=== PATIENT | female | born 1950 | race Caucasian/White ===

== ENCOUNTER → 2018-09-09 08:31 | Outpatient (CLI) | payer MEDICARE, MEDICAID, SELFPAY ==
--- NOTE | 2018-09-09 | XR_ITS ---
XR hip RT 2-3V w/pelvis HISTORY: ITS.REASON: KRISTY HIP PAIN ORDERING PHYSICIAN: Mohinder Mueller MD PATIENT AGE: 68 years COMPARISON: None FINDINGS: No fracture or dislocation is evident. No significant degenerative change. No lytic or blastic change. Unremarkable soft tissues. A small cystic areas present in the femoral neck at 8 mm nonspecific IMPRESSION: No acute finding. Questionable small cystic area in the femoral neck. Consider follow-up to confirm stability
--- NOTE | 2018-09-09 | XR_ITS ---
XR hip LT 2-3V w/pelvis HISTORY: ITS.REASON: KRISTY HIP PAIN ORDERING PHYSICIAN: Mohinder Mueller MD PATIENT AGE: 68 years COMPARISON: 05/20/2012 FINDINGS: No fracture or dislocation is evident. There is a small cystic area in the neck of the femur laterally measuring approximately 8 mm. No significant degenerative change. IMPRESSION: 1. No acute finding. 2. Small cystic area in the femoral neck nonspecific. This however was not present on the previous exam and may be due to a subchondral cyst. Consider follow-up to confirm stability
--- NOTE | 2018-09-09 | XR_ITS ---
EXAM: XR lumbar spine min 4V HISTORY: ITS.REASON: BACK PAIN ORDERING PHYSICIAN: Mohinder Mueller MD PATIENT AGE: 68 years COMPARISON: None FINDINGS: Normal alignment. No fracture or dislocation. No lytic or blastic change. There is minimal loss of height anteriorly of L4 with anterior osteophytes at L3-L4 and L5. There are faint calcifications in the left upper quadrant suggesting nephrolithiasis. There are nonspecific pelvic calcifications which may be due to phleboliths. Cannot exclude ureteral calculi on the right. There are surgical clips in the right upper quadrant. IMPRESSION: 1. Mild degenerative changes in the lumbar spine. There is mild wedging of L4 which could be old. 2. Left nephrolithiasis
[2018-09-09 09:44] LABS: Basophils # 0.1 K/mm3 (0-0.2); Basophils % 0.9 % (0.1-2.0); Eosinophils # 0.1 K/mm3 (0.0-0.4); Eosinophils % 2.2 % (0.1-12.0); Hematocrit 39.9 % (37.0-47.0); Lymphocytes # 1.9 K/mm3 (0.7-4.5); Lymphocytes % 30.5 % (10-50); Mean Corpuscular HGB Conc 32.6 g/dL (31.8-35.4); Mean Corpuscular Hemoglobin 30.9 pg (27.0-31.2); Mean Corpuscular Volume 94.7 fl (81-99); Mean Platelet Volume 7.6 fl (7.4-10.4); Monocytes # 0.5 K/mm3 (0.1-1.0); Monocytes % 7.6 % (1.7-9.3); Neutrophils # 3.6 K/mm3 (1.8-7.8); Neutrophils % 58.9 % (37.0-80.0); Platelet Count 391 K/mm3 (142-424); Red Blood Count 4.21 M/mm3 (4.20-5.40); Red Cell Distribution Width 12.9 % (11.5-17.5); White Blood Count 6.1 K/mm3 (4.8-10.8)
[2018-09-09 11:44] LABS: Alanine Aminotransferase 17 U/L (12-78); Albumin Level 3.8 gm/dL (3.4-5.0); Alkaline Phosphatase 89 U/L (46-116); Anion Gap 14.5 mEq/L (5-15); Aspartate Amino Transferase 12 U/L (15-37); Bilirubin,Total 0.4 mg/dL (0.2-1.0); Blood Urea Nitrogen 17 mg/dL (7-18); Calcium 9.7 mg/dL (8.5-10.1); Carbon Dioxide 28 mmol/L (21.0-32.0); Chloride 105 mmol/L (98-107); Chol/HDL Ratio 5.3 (1-3.5); Cholesterol 234 mg/dL (140-200); Creatinine,Serum 0.85 mg/dL (0.55-1.02); Estimated Glomerular Filt Rate 67 ml/min (>60); GFR (African American) 81 ML/MIN (>60); Globulin 3.8 gm/dl (1.3-3.2); Glucose 99 mg/dL (74-106); HDL Cholesterol 44 mg/dL (29-89); LDL Cholesterol 172 mg/dL (0-130); Potassium 5.5 mmoL/L (3.5-5.1); Sodium 142 mmol/L (136-145); Total Protein,Serum 7.6 gm/dL (6.4-8.2); Triglycerides 88 mg/dL (30-200); VLDL Cholesterol 18 mg/dL (0-40)
[2018-09-09 12:44] LABS: Hemoglobin A1C 5.8 % (0.0-7.0)
== END ==
PROVIDERS: Visit Provider Family Medicine
DX: M54.5 Low back pain (principal); M25.552 Pain in left hip; M25.551 Pain in right hip; Z00.00 Encounter for general adult medical examination without abnormal findings; Z79.899 Other long term (current) drug therapy
CPT/HCPCS: 36415; 72110; 73502; 80053; 80061; 83036; 85025

== ENCOUNTER → 2018-09-20 09:24 | Outpatient (CLI) | payer MEDICARE, SELFPAY ==
--- NOTE | 2018-09-20 09:30 | XR_ITS ---
XR DEXA axial skeleton HISTORY: ITS.REASON: POSTMENOPAUSAL ORDERING PHYSICIAN: Mohinder Mueller MD PATIENT AGE: 68 years COMPARISON: None FINDINGS: The BMD measured at the Left femoral neck is 0.687 g/cm squared with a T score of -2.5. This is considered Osteoporotic according to the World Health Organization criteria. Fracture risk is High. Treatment is advised. IMPRESSION: Osteoporosis with high fracture risk. Treatment is advised. Suggest follow-up exam September 2019
== END ==
PROVIDERS: PCP Family Medicine; Visit Provider Family Medicine
DX: Z78.0 Asymptomatic menopausal state (principal); M48.50XA Collapsed vertebra, not elsewhere classified, site unspecified, initial encounter for fracture
CPT/HCPCS: 77080

== ENCOUNTER 2018-09-30 10:00 | Outpatient (RCR) | payer MEDICARE, MEDICAID, SELFPAY ==
--- NOTE | 2018-09-20 10:59 | HMH.PTOPEV ---
PT Outpatient Evaluation Rehab PT Outpatient Evaluation Start: 09/20/18 10:46 Freq: Status: Active Protocol: Document 09/20/18 10:47 HARLEY (Rec: 09/20/18 10:59 HARLEY [id number]) Electronically Signed By Cy Breaux, PT 09/20/18 10:47 Outpatient Therapy Subjective History Subjective History Patient is a 68 year old female presenting to outpatient PT with reports of chronic LBP and bilateral hip pain of insidious onset starting approximately 10 years ago. Most recent diagnostics indicate lumbar spine DDD. Pt reports increased pain with sitting, walking and laying down. She reports intermittent numbness/ tingling/pain to bilateral hips and lateral thighs. Relief with standing/activity. Comorbidites include OA, hx of uterine cancer and hysterectomy. Chief Complaint Pain Stiff Paresthesia Symptom Type Ache Burning Numbness Tingling Symptoms Relieved By Heat Activity Symptoms Aggravated By Supine Sitting Walking Prior Functional Limitations None Current Functional Limitations Lifting Housework Sleeping Sitting Walking Symptom Description Intermittent Level of pain today (0-10) 0 Pain scale - at its best (0-10) 0 Pain scale - at its worst (0-10) 8 Lumbopelvic Eval Posture Thoracic Spine Posture Standing Position Increased Kyphosis Lumbar Spine Posture Standing Position Decreased Lordosis Palapation tenderness bilateral buttock tenderness Yes: 2/4 gluteal mm, piriformis Range of Motion Lumbar Spine Active Flexion Range of WNL Motion (degrees) Lumbar Spine Active Extension Range of 10 inc radicular sym Motion (degrees) Left Lumbar Spine Lateral Flexion Active 12 Range of Motion (degrees) Right Lumbar Spine Lateral Flexion 18 Active Range of Motion (degrees) Lumbar Spine ROM Limitations Soft Tissue Tightness
== END 2018-09-30 10:05 | disposition home or self-care (01) ==
LOC: PT 10:00
PROVIDERS: Visit Provider Family Medicine
DX: M54.5 Low back pain (principal)
CPT/HCPCS: 97010; 97012; 97014; 97110; 97163; G0283

== ENCOUNTER → 2018-10-18 15:00 | Outpatient (CLI) | payer MEDICARE, MEDICAID, SELFPAY ==
--- NOTE | 2018-10-18 15:03 | MR_ITS ---
MR lumbar spine wo con, MR 3-d myelogram/MRCP HISTORY: LBP with Bilateral hip and leg pain. LT leg numbness. XYRS. No lumbar surgery. ITS.REASON: MECHANICAL LOW BACK PAIN, VERTEBRAL COMPRESSION ORDERING PHYSICIAN: Mohinder Mueller MD PATIENT AGE: 68 years Comparison: X-RAY 09-09-18. TECHNIQUE: Standard multiplanar multiecho sequences are performed without contrast. 3-D MIP and myelographic images are also rendered and reviewed FINDINGS: There is normal alignment. The spinal cord in that the T12 level. Mild disc desiccation is present at T12-L1 with a small Schmorl's node along the superior endplate of L1. L1-L2 and L2-L3 have an unremarkable appearance. L3-L4: Minimal bulging disc with minimal osteophytes anteriorly. There is some slight decrease in height of the vertebral body of L4 however, this does not appear acute. L4-L5: Minimal bulging disc. There is facet and ligamentum flavum hypertrophy at this level with moderate bilateral lateral recess and foraminal narrowing. L5-S1: Degenerative disc disease with bulging disc and a small left paracentral disc protrusion. A small broad-based disc osteophyte complex is present in the right paracentral, lateral, and foraminal region causing moderate to severe right foraminal narrowing and right lateral recess narrowing. There is an exophytic cyst along the lateral aspect of the left kidney at 2.7 cm with some decreased T2 signal posteriorly which could be related to prior hemorrhage. IMPRESSION: 1. Mild multilevel lumbar spondylosis with degenerative disc disease and bulging disc along with facet and ligamentum flavum hypertrophy. Please see above for detailed description at each level 2. L3-L4: Minimal bulging disc with minimal osteophytes anteriorly. There is some slight decrease in height of the vertebral body of L4 however, this does not appear acute. 3. L4-L5: Minimal bulging disc. There is facet and ligamentum flavum hypertrophy at this level with moderate bilateral lateral recess and foraminal narrowing. 4. L5-S1: Degenerative disc disease with bulging disc and a small left paracentral disc protrusion. A small broad-based disc osteophyte complex is present in the right paracentral, lateral, and foraminal region causing moderate to severe right foraminal narrowing and right lateral recess narrowing. 5. Small complex cyst of the left kidney with some suspected underlying hemorrhage. Ultrasound may confirm cystic nature
== END ==
PROVIDERS: PCP Family Medicine; Visit Provider Family Medicine
DX: M54.5 Low back pain (principal); M48.50XA Collapsed vertebra, not elsewhere classified, site unspecified, initial encounter for fracture
CPT/HCPCS: 72148; 76376

== ENCOUNTER → 2019-06-20 10:29 | Outpatient (POV) | payer MEDICARE, OTHER, SELFPAY ==
[2019-06-20 10:44] VITALS: BP 154/91; PULSE 75; RESP 18; O2SAT 98; BMI 27.6
--- NOTE | 2019-06-20 13:02 | HMH.PMCON ---
Assessment and Plan (1) Degenerative disc disease Current visit: Yes Status: Chronic Qualifiers: Spinal region: lumbar Qualified Code(s): M51.36 - Other intervertebral disc degeneration, lumbar region Category: Medical (2) Radiculopathy Current visit: Yes Status: Chronic Qualifiers: Spinal region: lumbar Qualified Code(s): M54.16 - Radiculopathy, lumbar region Category: Medical Code(s): M54.10 - Radiculopathy, site unspecified - Assessment and plan all Dx Assessment and Plan for all problems:: At this time the patient is uninterested in any injective therapy. I did give her information in regards to things that we can offer her. Patient like to continue her medication with her primary care physician. I discussed with her that we do not write oral opioid medications. Patient understands this. If the patient would like to move forward with injective therapy in the future we would be more than happy to reschedule her. Dr. Hodge has reviewed this note and agrees with this plan of care. This note was dictated using voice recognition software and may contain errors or omissions HPI - Data of Consult Consult date: 06/20/19 Requesting Physician: Marleen Dennis APRN Primary Care Provider: Mohinder Mueller MD - Consult Narrative Reason for consult: Back pain History of present illness: Ms. Mills is a 69 year old female who presents today for consultation in regards to her low back pain. She rates her pain a 5 out of 10. Patient has had back pain for years. Patient states she went to physical therapy one time however she did not like it so she quit. Patient does have an MRI showing abnormalities including degenerative disc disease. Patient is uninterested in any kind of injective therapy. Patient states that she is getting pain medication from her primary care physician and it has been working well for her. CC: Marleen Dennis APRN [facility] History I have reviewed the patient's past medical history: Yes *Have you ever received a pneumonia vaccine?: Yes *Have you received a flu vaccine this season?: Yes Other Medical History: Reports: Arthritis Other Surgeries: Yes: Cholecystectomy Amputation: No Fractures: No - *Social History Smoking Status: Current every day smoker Tobacco Type: cigarettes # Packs/Day (cigarettes): 2 Alcohol Intake: never *Occupational Status:: other Housing: house *Travel in the last 8 weeks: None Family Hx:: Unable to obtain Review of Systems - Review of Systems ROS General: no recent weight change, no fever, no sleep disturbances Respiratory: no cough, no shortness of air, no recurring pulmonary infections Cardiovascular/Peripheral Vascular: No chest pain, No palpitations, no edema, no shortness of breath. Gastrointestinal: no new onset incontinence, normal bowel movements reported Genitourinary: no new onset incontinence Musculoskeletal: Back pain, leg pain Psychiatric: normal mood/ affect Neurological: [denies new onset weakness in extremities], [denies new onset balance issues] Objective Vital signs: Pulse Resp BP Pulse Ox 75 18 154/91 H 98 06/20/19 10:44 06/20/19 10:44 06/20/19 10:44 06/20/19 10:44 Narrative: Physical Exam General: Alert and oriented x3, no acute distress, pleasant and cooperative, [on room air] Lungs: Resps E/U, Symmetrical chest expansion, Eyes: PERRL Musculoskeletal: Flexion and extension of lumbar spine somewhat guarded secondary to pain, deep tendon reflexes normal, strength in upper and lower extremities [5/5], [abnormal gait noted] Neurological: speech clear, pharmacy tech customer service equal, no gross sensory deficits Opioid Risk Tool - Opioid Risk Tool-Female Family hx alcohol abuse: N Family hx illegal drugs: N Family hx rx drug abuse: N Personal hx alcohol abuse: N Personal hx illegal drugs: N Personal hx rx drug abuse: N Age: 45+ Hx of sexual abuse: N Mental health issu
== END ==
PROVIDERS: PCP Family Medicine; Visit Provider Clinical Nurse Specialist Family Health
DX: M51.16 Intervertebral disc disorders with radiculopathy, lumbar region (principal)
CPT/HCPCS: 99212

== ENCOUNTER 2020-01-08 14:52 | Emergency (ER) | payer MEDICARE, OTHER, SELFPAY ==
--- NOTE | 2020-01-08 14:59 | ECG_ITS ---
APPROVED REPORT Exam: Resting ECG HR:72 bpm ECG Measurements Heart Rate 72 AXES PA 144 P 39 QRSd 68 QRS 44 QT 386 T 58 QTc 422 <Conclusion> Normal sinus rhythm Normal ECG Electronically signed by : Sj Hanley, 01/09/2020 13:51:01
[2020-01-08 15:02] VITALS: BP 177/102; PULSE 79; RESP 18; TEMP 36.9; O2SAT 98; BMI 28.7
--- NOTE | 2020-01-08 15:02 | HMH.EDGENADL ---
ED Disposition Clinical Impression: Dyspnea on exertion Disposition: Home, Self-Care Condition on Discharge: Good Instructions: DI for Shortness of Breath, DI for High Blood Pressure Referrals: Mickey Viera MD [Primary Care Provider] - 3 days - Critical Care Critical Care Time: No Attestation: On 01/08/20, the high probability of a clinically significant, sudden or life threatening deterioration of the following system(s) required my full and direct attention, intervention and personal management. The time I documented below is in addition to time spent performing reported procedures but includes the following listed in this critical care notation. Medical Decision Making - Medical Records Medical records reviewed: Yes: I reviewed the patient's medical records. - Lazaro Inquiry Pt receiving controlled substance: No Vital Signs: 01/08/20 15:02 01/08/20 15:30 Temperature 98.5 F Temperature Source Oral Pulse Rate [Right Radial] 79 69 Respiratory Rate 18 Blood Pressure [Right Arm] 177/102 H 139/84 Blood Pressure Mean [Right Arm] 127 102 Blood Pressure Source [Right Arm] Automatic Cuff Automatic Cuff Blood Pressure Position [Right Arm] Sitting Supine 02 Sat by Pulse Oximetry 98 97 Oxygen Delivery Method Room Air Room Air - Lab Data Lab results reviewed: Yes: I reviewed the patient's lab results. Lab Results 01/08/20 15:09: WBC 9.4, RBC 4.16 L, Hgb 13.5, Hct 39.4, MCV 94.8, MCH 32.5 H, MCHC 34.3, RDW 13.1, Plt Count 349, MPV 7.6, Neut % (Auto) 61.4, Lymph % (Auto) 30.7, Bailey % (Auto) 6.0, Eos % (Auto) 1.2, Baso % (Auto) 0.6, Neut # (Auto) 5.8, Lymph # (Auto) 2.9, Bailey # (Auto) 0.6, Eos # (Auto) 0.1, Baso # (Auto) 0.1 01/08/20 15:09: Sodium 138, Potassium 3.9, Chloride 103, Carbon Dioxide 26, Anion Gap 12.9, BUN 10, Creatinine 0.70, Estimated Creat Clear 61, Estimated GFR 83, Est GFR ( Amer) 101, Glucose 100, Calcium 9.5, Total Bilirubin 0.6, Direct Bilirubin 0.1, Conjugated Bilirubin 0.0, Indirect Bilirubin 0.5, Unconjugated Bilirubin 0.6, AST 21, ALT 12, Alkaline Phosphatase 72, Troponin I < 0.01, Total Protein 7.9, Albumin 4.4 Result diagrams: 01/08/20 15:09 01/08/20 15:09 Orders (Tests/Meds): ED MEDICATIONS Discontinued Medications Generic Name Dose Route Start Last Admin Trade Name Freq PRN Reason Stop Dose Admin Hydralazine HCl 10 mg 01/08/20 15:17 01/08/20 15:38 Apresoline 20mg/Ml 1ml Vial IV 01/08/20 15:18 10 mg ONCE ONE Administration ORDERS Category Date Time Status Troponin I Q3H Lab 01/08/20 18:15 Ordered Troponin I Q3H Lab 01/08/20 21:15 Ordered - Radiology Data #1 Image(s): Chest Image Reviewed: Yes I reviewed the patient's radiology image Preliminary Findings: Normal/NAD - ECG Data Tracing #1 EKG at 1459 shows normal sinus rhythm with a rate of 72. No acute ST segment elevation or depression. No hyperacute T waves. Normal intervals. EKG interpreted by me. Medical Decision Narrative: EKG with no signs of acute ischemia. Chest x-ray with no pneumonia, pneumothorax, widened mediastinum or florid pulmonary edema. She is slightly hypertensive and may benefit from blood pressure medication. Troponin is negative, unlikely ACS, will certainly she would benefit from cardiology follow-up for further outpatient testing and evaluation. This may also be related to as of yet undiagnosed COPD. No chest pain, hypoxia, unlikely acute pulmonary embolus. There is no clinically significant anemia or metabolic derangement. Recommended follow-up with primary care doctor in 2 to 3 days for reevaluation. General Adult HPI - General Stated complaint: sob Time Seen by Provider: 01/08/20 15:02 Mode of Arrival: Ambulatory Source of Information: Patient, Medical Record Limitations: No Limitations - History of Present Illness HPI narrative: This is a 69-year-old female with a past medical history significant for hyperlipidemia and chronic
--- NOTE | 2020-01-08 15:14 | XR_ITS ---
PROCEDURE: XR CHEST 2V CLINICAL HISTORY: SOA COMPARISON: No exams were available for comparison FINDINGS: The cardiomediastinal silhouette and pulmonary vascularity are within normal limits. The lungs are clear without infiltrates, suspicious nodules, or pleural effusions. No acute bony abnormalities. IMPRESSION: No acute findings. Dictated by: Terry Rosario MD 01/08/2020 15:36 Electronically signed by Terry Rosario MD in [place] 01/08/2020 15:36
[2020-01-08 15:23] LABS: Basophils # 0.1 K/mm3 (0-0.2); Basophils % 0.6 % (0.1-2.0); Eosinophils # 0.1 K/mm3 (0.0-0.4); Eosinophils % 1.2 % (0.1-12.0); Hematocrit 39.4 % (37.0-47.0); Hemoglobin 13.5 g/dL (12.2-16.2); Lymphocytes # 2.9 K/mm3 (0.7-4.5); Lymphocytes % 30.7 % (10-50); Mean Corpuscular HGB Conc 34.3 g/dL (31.8-35.4); Mean Corpuscular Hemoglobin 32.5 pg (27.0-31.2); Mean Corpuscular Volume 94.8 fl (81-99); Mean Platelet Volume 7.6 fl (7.4-10.4); Monocytes # 0.6 K/mm3 (0.1-1.0); Neutrophils # 5.8 K/mm3 (1.8-7.8); Neutrophils % 61.4 % (37.0-80.0); Platelet Count 349 K/mm3 (142-424); Red Blood Count 4.16 M/mm3 (4.20-5.40); Red Cell Distribution Width 13.1 % (11.5-17.5); White Blood Count 9.4 K/mm3 (4.8-10.8)
[2020-01-08 15:26] LABS: Chloride 103 mmol/L (98-107); Potassium 3.9 mmoL/L (3.5-5.1); Sodium 138 mmol/L (136-145)
[2020-01-08 15:28] LABS: Blood Urea Nitrogen 10 mg/dl (7-17); Creatinine Clearance Estimated 61 mL/min (50-200); Estimated Glomerular Filt Rate 83 ml/min (>60); GFR (African American) 101 ML/MIN (>60)
[2020-01-08 15:29] LABS: Alanine Aminotransferase 12 U/L (12-78); Albumin Level 4.4 g/dl (3.5-5.0); Alkaline Phosphatase 72 U/L (38-126); Anion Gap 12.9 mEq/L (5-15); Aspartate Amino Transferase 21 U/L (14-36); Bilirubin,Direct 0.1 mg/dl (0.0-0.4); Bilirubin,Indirect 0.5 mg/dL (0.0-0.9); Bilirubin,Total 0.6 mg/dl (0.2-1.3); Bilirubin,Unconjugated 0.6 mg/dL (0.0-1.1); Calcium 9.5 mg/dl (8.4-10.2); Carbon Dioxide 26 mmol/L (22.0-30.0); Glucose 100 mg/dl (74-100); Total Protein,Serum 7.9 g/dl (6.3-8.2)
[2020-01-08 15:30] VITALS: BP 139/84; PULSE 69; O2SAT 97
[2020-01-08 15:45] LABS: Troponin I < 0.01 ng/ml (0.00-0.034)
[2020-01-08 16:50] VITALS: BP 139/84; PULSE 69; RESP 18; TEMP 36.9; O2SAT 97
== END 2020-01-08 16:51 | disposition home or self-care (01) ==
PROVIDERS: Emergency Provider Emergency Medicine; PCP Family Medicine
DX: R06.09 Other forms of dyspnea (principal); E78.5 Hyperlipidemia, unspecified; M54.9 Dorsalgia, unspecified; Z88.0 Allergy status to penicillin; Z90.49 Acquired absence of other specified parts of digestive tract
CPT/HCPCS: 71046; 80048; 80076; 84484; 85025; 93005; 96374; 99283

== ENCOUNTER → 2020-02-15 11:28 | Outpatient (CLI) | payer MEDICARE, OTHER, SELFPAY | PROVIDERS: PCP Family Medicine; Visit Provider Family Medicine | DX: R06.02 Shortness of breath (principal) | CPT/HCPCS: 94060 ==

== ENCOUNTER → 2020-03-21 08:09 | Outpatient (CLI) | payer MEDICARE, OTHER, SELFPAY ==
--- NOTE | 2020-03-21 08:13 | CT_ITS ---
PROCEDURE: CT LUNG SCREENING CLINICAL INDICATION: H/O NICOTINE DEPENDENCE current smoker 50 pack year smoking history copd no prior COMPARISON: No exams were available for comparison TECHNIQUE: The exam was performed on a GE Light Speed [address] scanner using 2.90 mGy CTDI. A low dose helical CT CHEST was performed on a multi-detector scanner. All CT scans at the facility use one or more dose reduction, viz: automated exposure control, ma/kV adjustment per patient size (including targeted exams where dose is matched to indication, i.e. head), or iterative reconstruction technique. The LDCT was performed in a facility that meets the criteria for the screening program. Data regarding this exam was submitted to ACR which is an approved registry. The order for this exam indicates that it came as a result of a lung cancer screening counseling shard decision-making visit that included all the elements required of such a visit including smoking cessation. The radiologist interpreting this exam meets the CMS criteria for the LDCT lung cancer screening program. The exam is reported using the Lung-RADS classification scale and reported to the ACR registry. NOTE: This study was performed for the specific purposes of lung cancer screening and is not an alternative to diagnostic chest CT. RADIATION DOSE: CTDI vol(CT dose Index-volume) = 2.90mG DLP (Dose Length Product) = 108.38 mGcm FINDINGS: COPD with scattered areas of scarring/atelectatic change with mild bronchial thickening. No suspicious nodules OTHER FINDINGS: Coronary artery calcification consistent with coronary artery disease Gastric diverticulum Mild dilatation of the infrarenal abdominal aorta at 2.6 cm in with consistent with aortic aneurysm incompletely imaged. IMPRESSION: Lung-RADS Category 1 Negative Follow-up: Continue annual screening with LDCT in 12 months Also noted is coronary artery disease. 2.6 cm infrarenal abdominal aortic aneurysm incompletely image. CT abdomen CT suggested for further evaluation Dictated by: Terry Rosario MD 03/24/2020 14:56 Terry Rosario MD in [place] 03/24/2020 14:56
== END ==
PROVIDERS: PCP Family Medicine; Visit Provider Family Medicine
DX: Z87.891 Personal history of nicotine dependence (principal); Z12.2 Encounter for screening for malignant neoplasm of respiratory organs

== ENCOUNTER → 2020-03-28 08:13 | Outpatient (CLI) | payer MEDICARE, OTHER, SELFPAY ==
--- NOTE | 2020-03-28 08:16 | US_ITS ---
PROCEDURE: US ABD. AORTA SCREENING CLINICAL INDICATION: AAA COMPARISON: No exams were available for comparison FINDINGS: The mid abdominal aorta measures up to 2.4 cm. Common iliacs proximally are unremarkable. IMPRESSION: Mild dilatation of the mid abdominal aorta at 2.4 cm Dictated by: Terry Rosario MD 03/28/2020 15:47 Terry Rosario MD in [facility] 03/28/2020 15:47
== END ==
PROVIDERS: PCP Family Medicine; Visit Provider Family Medicine
DX: I71.4 Abdominal aortic aneurysm, without rupture (principal)
CPT/HCPCS: 76705

== ENCOUNTER → 2021-04-28 07:51 | Outpatient (CLI) | payer MEDICARE, OTHER, SELFPAY ==
--- NOTE | 2021-04-28 07:54 | US_ITS ---
PROCEDURE: US AORTA CLINICAL INDICATION: AAA COMPARISON: US US ABD. AORTA SCREENING from 03/28/2020 FINDINGS: There is mild dilatation the mid aspect of the abdominal aorta at 2.7 cm. The previously the maximum AP dimension was 2.5 cm. Proximal common iliacs are unremarkable. IMPRESSION: Minimal dilatation mid abdominal aorta at 2.7 cm previously approximately 2.5. Dictated by: Terry Rosario MD 04/28/2021 12:30 Terry Rosario MD in [facility] 04/28/2021 12:30
== END ==
PROVIDERS: PCP Family Medicine; Visit Provider Family Medicine
DX: I71.4 Abdominal aortic aneurysm, without rupture (principal)
CPT/HCPCS: 76770

== ENCOUNTER → 2021-07-14 14:42 | Outpatient (CLI) | payer MEDICARE, OTHER, MEDICAID, SELFPAY | PROVIDERS: Visit Provider Nurse Practitioner | DX: U07.1 COVID-19 (principal) | CPT/HCPCS: C9803; U0003; U0005 ==

== ENCOUNTER 2022-02-14 13:49 | Emergency (ER) | payer MEDICARE, OTHER, MEDICAID, SELFPAY ==
[2022-02-14 13:51] VITALS: BP 167/92; PULSE 86; RESP 19; TEMP 36.8; O2SAT 97; BMI 30.2
[2022-02-14 14:15] VITALS: BP 167/92; PULSE 86; RESP 19; TEMP 36.8; O2SAT 97; BMI 30.3
--- NOTE | 2022-02-14 14:59 | XR_ITS ---
PROCEDURE INFORMATION: Exam: XR Chest Exam date and time: 02/14/2022 3:01 PM Age: 72 years old Clinical indication: Shortness of breath; Additional info: SOB TECHNIQUE: Imaging protocol: Radiologic exam of the chest. Views: 2 views. COMPARISON: CR XR CHEST 2V 01/08/2020 3:14 PM FINDINGS: Lungs: Slightly increased interstitial prominence in the lower lungs on today's frontal view, probably due to shallower inspiratory effort today. No focal consolidation. No definite acute findings. Pleural spaces: Unremarkable. No pleural effusion. No pneumothorax. Heart/Mediastinum: Borderline cardiomegaly, cardiac silhouette appears increased in prominence compared with the prior chest x-ray on the frontal view, but the lungs are not as well inflated on today's exam. Vasculature: Calcified plaques in the aorta. Bones/joints: There are spinal degenerative changes, with multilevel disc narrrowing and spondylosis. Mild chronic anterior wedge deformities in the midthoracic spine with mild kyphosis. No acute appearing fracture or high-grade listhesis, as visualized. IMPRESSION: 1. No acute findings. No consolidation. 2. Multiple additional non emergency and chronic findings, as above.
[2022-02-14 15:15] VITALS: BP 167/92; PULSE 86; RESP 19; TEMP 36.8; O2SAT 97
--- NOTE | 2022-02-14 15:31 | EXP.UTC ---
Discharge Plan Disposition Patient Disposition: Home, Self-Care Condition: Good Prescriptions Prescriptions: New cyclobenzaprine 5 mg tablet 5 mg PO TID PRN (Reason: muscle spasm) Qty: 30 0RF Referrals Follow up/Referrals: Mickey Viera MD [Primary Care Provider] - See instructions Activity Restrictions/Add. Instructions Additional Instructions/Restrictions: Take medication as prescribed. Follow up with PCP. Avoid heavy lifting and straining. Clinical Impressions Clinical Impression: Muscle strain Discharge ED Provider: Barbara Buckner [facility] General Stated complaint: sob, back pain Mode of Arrival: Ambulatory Source of Information: Patient Limitations: No Limitations Time Seen by Provider: 02/14/22 15:00 Description of Symptoms (Recalled from Triage Doc. by RN): PATIENT C/O PAIN TO SHOULDER BLADES THAT IS WORSE WITH MOVEMENT AND TAKING A DEEP BREATH HEENT Symptoms (Recalled from RN notes): No Resp Symptoms (Recalled from RN notes): No Skin Symptoms (Recalled from RN notes): No MS Symptoms (Recalled from RN notes): Yes Functional Status (Recalled from RN notes): WNL History of Present Illness Provider Complaint: Pt relates that she has been SOA with pain on her right mid thoracic that goes around like a U to the front across the right side of her chest. She states that the area is painful with inspiration. Pt denies taking anything for her symptoms. She states that symptoms started 2 days ago. Related Data Previous Rx's Medication Instructions Recorded cyclobenzaprine 5 mg tablet 5 mg PO TID PRN muscle spasm #30 02/14/22 tabs Allergies Allergy/AdvReac Type Severity Reaction Status Date / Time Penicillins Allergy Verified 01/08/20 15:12 Worker's Comp Is this a Worker's Comp case?: No [facility] Medical History (Updated 02/14/22 @ 15:50 by Barbara Buckner APRN) COPD (chronic obstructive pulmonary disease) Migraine Surgical History (Updated 02/14/22 @ 14:32 by Marie Trent RN) History of cholecystectomy History of hysterectomy Social History (Updated 02/14/22 @ 14:32 by Marie Trent RN) Smoking Status: Current every day smoker tobacco type: cigarettes packs per day: 1 alcohol intake: never current occupational status: other Travel in the last 8 weeks: None housing: house ROS Obtained: Yes All systems reviewed & no additional complaints except as documented and Yes Systems reviewed as appropriate & no additional complaints except as documented Constitutional Constitutional: Reports system reviewed and no additional complaints, except as documented and Reports difficulty sleeping ENT Ears, Nose, Mouth, and Throat: Reports system reviewed and no additional complaints, except as documented Cardiovascular Cardiovascular: Reports system reviewed and no additional complaints, except as documented Respiratory Respiratory: Reports as per HPI, Reports shortness of breath, Reports non-productive cough, Reports pain on inspiration, Reports pain with cough and Reports pain with breathing Gastrointestinal Gastrointestingal: Reports system reviewed and no additional complaints, except as documented Musculoskeletal Musculoskeletal: Reports as per HPI and Reports back pain Physical Exam General General appearance: alert and in no apparent distress Neck Neck exam: Present normal inspection Chest Chest inspection: Present normal inspection and symmetric chest wall rise Respiratory Respiratory exam: Present normal lung sounds bilaterally and other; Absent respiratory distress or accessory muscle use Cardiovascular Cardiovascular exam: Present regular rate and normal rhythm Abdominal Exam Abdominal exam: Present soft Extremities Exam Extremities exam: Present normal inspection Back Exam Back exam: Present tenderness Back 1 view image: 1. relates that this area hurts with breathing Neurological Exam Neurological exam: Present alert and oriented X3 Psychiatr
== END 2022-02-14 16:02 | disposition home or self-care (01) ==
PROVIDERS: Emergency Provider Nurse Practitioner Family; PCP Family Medicine
DX: S29.011A Strain of muscle and tendon of front wall of thorax, initial encounter (principal)
CPT/HCPCS: 71046; 99212; G0463

== ENCOUNTER → 2022-02-18 11:50 | Outpatient (CLI) | payer MEDICARE, OTHER, MEDICAID, SELFPAY ==
--- NOTE | 2022-02-18 12:15 | ECG_ITS ---
APPROVED REPORT Exam: Resting ECG HR:78 bpm ECG Measurements Heart Rate 78 AXES MS 150 P 67 QRSd 79 QRS 78 QT 368 T 72 QTc 402 Conclusion SINUS RHYTHM WITH OCCASIONAL SUPRAVENTRICULAR PREMATURE COMPLEXES BORDERLINE ECG UNCONFIRMED REPORT Electronically signed by : Julián Mann MD 02/18/2022 17:32:15
[2022-02-18 12:51] LABS: Blood Urea Nitrogen 11 mg/dl (7-17); Estimated Glomerular Filt Rate 83 ml/min (>60); GFR (African American) 100 ML/MIN (>60)
== END ==
PROVIDERS: PCP Family Medicine; Visit Provider Nurse Practitioner Family
DX: R07.9 Chest pain, unspecified (principal)
CPT/HCPCS: 36415; 82565; 84520; 93005

== ENCOUNTER → 2022-02-19 13:55 | Outpatient (CLI) | payer MEDICARE, OTHER, MEDICAID, SELFPAY ==
--- NOTE | 2022-02-19 14:01 | CT_ITS ---
FINAL REPORT TECHNIQUE: Postcontrast axial images of the chest were performed in a CTA protocol. This study was performed with techniques to keep radiation doses as low as reasonably achievable, (ALARA). Individualized dose reduction technique using automated exposure control or adjustment of mA and/or kV according to the patient's size were employed. CLINICAL HISTORY: RT CHEST AND BACK PAIN FINDINGS: The heart is normal in size. No adenopathy is identified. No pleural or pericardial effusion is identified. The thoracic aorta is normal in caliber with no focal aneurysm or dissection identified. There is no filling defect to suggest pulmonary embolism. There is mild emphysema and mild scarring. No lung infiltrate or mass is identified. The images of the upper abdomen demonstrate low-attenuation bilateral adrenal nodules consistent with adenomas as well as a gastric diverticulum. IMPRESSION: No evidence for PE, aneurysm or dissection. No acute process. Reviewed, Interpreted and Dictated by Thuan Pires III, MD Transcribed by Ayala Gutierrez Authenticated and . [facility]
== END ==
PROVIDERS: PCP Family Medicine; Visit Provider Nurse Practitioner Family
DX: R07.9 Chest pain, unspecified (principal)
CPT/HCPCS: 71275; Q9967

== ENCOUNTER → 2022-06-10 15:39 | Outpatient (CLI) | payer MEDICARE, OTHER, MEDICAID, SELFPAY ==
--- NOTE | 2022-06-10 15:42 | MM_ITS ---
PROCEDURE INFORMATION: Exam: MG Bilateral Screening 3D Mammography Exam date and time: 06/10/2022 3:36 PM Age: 72 years old Clinical indication: Screening examination; Additional info: Breast pain TECHNIQUE: Imaging protocol: Bilateral Screening tomosynthesis and 2D mammography including computer-aided detection (CAD) when performed. COMPARISON: No relevant prior studies available. FINDINGS: MAMMOGRAPHY: Breast composition: There are scattered areas of fibroglandular density. Mass: None. Architectural distortion: No new or suspicious architectural distortion. Calcifications: There are benign-appearing calcifications within the bilateral breasts breast. Asymmetric density: No new or suspicious asymmetric density is present Skin thickening: None. Axillary adenopathy: None. IMPRESSION: No mammographic evidence of malignancy. Recommend annual screening mammography unless otherwise clinically indicated. ASSESSMENT: BI-RADS category 2: Benign
== END ==
PROVIDERS: PCP Family Medicine; Visit Provider Family Medicine
DX: Z12.31 Encounter for screening mammogram for malignant neoplasm of breast (principal)
CPT/HCPCS: 77063; 77067

== ENCOUNTER → 2023-05-05 08:30 | Outpatient (CLI) | payer MEDICARE, OTHER, SELFPAY ==
--- NOTE | 2023-05-05 08:33 | US_ITS ---
FINAL REPORT CLINICAL HISTORY: AAA COMPARISON: None FINDINGS: Sonographic images were obtained of the abdominal aorta. The abdominal aorta measures up to 2.7 centimeters in greatest dimensions. The common iliac arteries are within normal limits. IMPRESSION: No evidence of aortic aneurysm. Reviewed, Interpreted and Dictated by Thuan Pires III, MD Transcribed by Nicol Castillo Authenticated and [facility]
== END ==
PROVIDERS: PCP Family Medicine; Visit Provider Family Medicine
DX: I71.40 Abdominal aortic aneurysm, without rupture, unspecified (principal)
CPT/HCPCS: 76705

== ENCOUNTER 2024-01-25 14:19 | Outpatient (POV) | payer MEDICARE, OTHER, SELFPAY | END 2024-01-25 23:59 | disposition home or self-care (01) | LOC: SC 14:19 | PROVIDERS: PCP Family Medicine; Visit Provider Dermatology | DX: Z00.00 Encounter for general adult medical examination without abnormal findings (principal) ==

== ENCOUNTER 2024-04-18 07:34 | Outpatient (CLI) | payer MEDICARE, OTHER, SELFPAY ==
--- NOTE | 2024-04-18 07:51 | MR_ITS ---
PROCEDURE INFORMATION: Exam: MR Head Without and With Contrast Exam date and time: 04/18/2024 8:10 AM Age: 74 years old Clinical indication: Pain; Other: Pressure in head; Additional info: Daily headaches/ blurry vision TECHNIQUE: Imaging protocol: Magnetic resonance imaging of the head without and with contrast. Contrast material: ISOVUE; Contrast volume: 16 ml; Contrast route: IV; COMPARISON: No relevant prior studies available. FINDINGS: Brain: Confluent and focal areas of T2 prolongation within the periventricular and subcortical white matter of the supratentorial brain without restricted diffusion. Remainder of the brain parenchyma demonstrates normal signal intensity and enhancement. No intra- or extra-axial mass or abnormality. No mass effect or midline shift. Cerebral ventricles: Ventricles and sulci are mildly dilated without evidence of hydrocephalus. Bones: Unremarkable. Paranasal sinuses: No significant mucoperiosteal thickening in the visualized paranasal sinuses. Mastoid air cells: No mastoid effusion. Orbital cavities: NA Soft tissues: Midline brain structures including the corpus callosum, pituitary gland, pineal region, and craniovertebral junction are unremarkable. Intracranial vessels demonstrate a normal flow-void. IMPRESSION: 1. No acute hemorrhagic or ischemic infarct. 2. [id number] chronic microvascular ischemic disease and generalized age appropriate atrophy.
[2024-04-18 08:13] LABS: Blood Urea Nitrogen 9 mg/dl (7-17); Estimated Glomerular Filt Rate 71 ml/min (>60); GFR (African American) 85 ML/MIN (>60)
[2024-04-18] MEDS: GADOTERIDOL INJ 20ML SYRINGE 16 ML IV (08:43)
[2024-04-18] MEDS: SODIUM CHLORIDE 0.9% 10ML SYR (RAD ONLY) 10 ML IV (08:43)
== END 2024-04-18 23:59 | disposition home or self-care (01) ==
LOC: RAD 07:38
PROVIDERS: PCP Family Medicine; Visit Provider Family Medicine
DX: R51.9 Headache, unspecified (principal); H53.8 Other visual disturbances
CPT/HCPCS: 36415; 70553; 82565; 84520; A9576

== ENCOUNTER 2025-01-11 15:38 | Outpatient (CLI) | payer MEDICARE, OTHER, SELFPAY ==
--- OUTSIDE RECORDS SUMMARY | 2024-12-25 10:00 | XMS_ITS ---
Author Organization [facility] Address [address] [facility] [address] [place] [id number] Care Team Providers Care Wood Turning Lathe Operator Name Role Phone Mickey Viera Primary Care [...] 104 Performing Lab: Notes/Report: Test performed by [facility], [facility] , [address], [place] [address] Juan R Mendez MD, Senior Sustainability Advisor CLIA: [id number] Sodium 139 135-145 mmol/L Potassium 4.6 3.5-5.3 [...] 4.5 Performing Lab: Notes/Report: Test performed by [facility] [address] [place] [address] , [address], [place] [address] Juan R Mendez MD, Senior Sustainability Advisor CLIA: [id number] Cholesterol 272 <200 mg/dL Triglycerides 131 <150 [...] Interpretation:Normal Performing Lab: Notes/Report: Test performed by [facility] [address] [place] [address] , [place] [address] Juan R Mendez MD, Senior Sustainability Advisor CLIA: [id number] TSH reflex to FT4 1.42 0.43-5.25 mU/L P-Microalbumin/Creatinine, R andom Urine Sample Reviewed date:12/27/2024 11:14:56 AM Interpretation:Normal Performing Lab: Notes/Report: Test performed by [facility] [address] [place] [address] , [address], [place] [address] Juan R Mendez MD, Senior Sustainability Advisor CLIA: [id number] Albumin/Creatinine Ratio, Urine 5 0-30 ug/m g Microalbumin, Urine, Random 0.6 Creatinine, Urine 124.9 P-Vitamin D 25-Hydroxy Reviewed date:12/27/2024 11:14:56 AM Interpretation:40.7 Performing Lab: Notes/Report: Test performed by [facility], [facility] [address] [place] [address] , [address], [place] [address] Juan R Mendez MD, Senior Sustainability Advisor CLIA: [id number] Vitamin D 25-Hydroxy 40.7 30.0-100.0 ng/mL Interpretation [...] Last Name Maximiliano Referring Provider Speciality Family [facility] aureice Referred Provider Machelle Greene Referred Provider Specialty ENT General Notes Helen Garcia 2024 02:42:43 PM > faxed to [facility] Radha BARNES Brynn 12/28/2024 11:33:33 AM > [...] Provider Diagnosis [facility] [address] [place] [id number] 12/25/2024 Mickey Viera Dyslipidemia E78.5 ; Essential hypertension I10 ; GERD (gastroesophageal reflux disease) K21.9 ; Vitamin D deficiency E55.9 ; Sinus pressure J34.89 ; Screening for lung cancer Z12.2 ; Personal history of nicotine dependence Z87.891 ; intermediate manager use of drug Z79.899 ; Chronic obstructive [...] of nicotine dependence (ICD-10 - Z87.891) 12/25/2024 FPC use of drug (ICD-10 - Z79.899) 12/25/2024 [...] [address], [address], [place], [place], [id number], Progress Notes * VELMA JEFFERSB:1950 (74 yo F)Acc No.[id number]:12/25/2024 Progress Notes Patient: BERNICE GAYTAN Provider: Lenin Viera M.D. :1950 A ge:74 Y S ex:Female Date:12/25/2024 Address: [address], [place] , [id number] Subjective: * Chief Complaints: * 1 . [...] * Hospitalization/Major Diagno stic Procedure: S OA- [facility] ER 01/08/2020. * Family History: F ather: [...] COPD type - J44.9 1 0. B WA 30.0-30.9,adult - Z68.30 Plan: * Treatment: Value [...] EDT > no auth required; CPT code 69031 7.?Personal history of nicotine dependence?Imaging: CT Scan : Chest, low dose* Helen Garcia 12/25/2024 02:4 1:24 PM EDT > no auth required; CPT code 60453 8.?FPC use of drug?LAB: CBC Venipuncture (in [...] G 2211 Complex e/[place], [address] CBC WITH AUTO DIFF, G8950 PREHTN/HTN BP DOC INDCD F/U DOC, G8753 MOST RECENT SYSTOLIC BP >= 140MM HG, G8754 MOST RECENT DIASTOLIC BP < 90MM HG * Follow Up: 6 Months * Images: Billing Information: * Visit Code: 61528 Office Visit, Est Pt., Level 4. * Procedure Codes: G2211 Complex e/[place]. [address] CBC WITH AUTO DIFF. G8950 PREHTN/HTN BP DOC INDCD F/U DOC. G8753 MOST RECENT SYSTOLIC BP >= 140MM HG. G8754 MOST RECENT DIASTOLIC BP < 90MM HG. * Electronic signature of Jeanie Viera MD on 01/11/2025 at 03:40 PM EDT Sign off status: Pending * Provider: Lenin Viera M.D. Date: 12/25/2024 Generated for Ebonyi ng/Faxing/eTransmitting on: 01/11/2025 03:40 PM EDT History and Physical Notes * [...]
--- OUTSIDE RECORDS SUMMARY | 2025-01-11 15:41 | XMS_ITS | Patient Health Record ---
Author Organization [facility] Address [address] [place] [id number] Care Team Providers Care Microsoft Application Developer Name Role Phone Mickey Viera Primary Care [...] 104 Performing Lab: Notes/Report: Test performed by [facility] , [address], [place] [address] Juan R Mendez MD, Oil Field Equipment Mechanic Supervisor CLIA: [id number] Sodium 139 135-145 mmol/L Potassium 4.6 3.5-5.3 [...] 4.5 Performing Lab: Notes/Report: Test performed by [facility], [address] , [address], [place] [address] Juan R Mendez MD, Oil Field Equipment Mechanic Supervisor CLIA: [id number] Cholesterol 272 <200 mg/dL Triglycerides 131 <150 [...] Interpretation:Normal Performing Lab: Notes/Report: Test performed by [facility] [address] [place] [address] [place] [address] Juan R Mendez MD, Oil Field Equipment Mechanic Supervisor CLIA: [id number] TSH reflex to FT4 1.42 0.43-5.25 mU/L P-Microalbumin/Creatinine, R andom Urine Sample Reviewed date:12/27/2024 11:14:56 AM Interpretation:Normal Performing Lab: Notes/Report: Test performed by [facility] [address] [place] [address] , [place] [place] [address] Juan R Mendez MD, Oil Field Equipment Mechanic Supervisor CLIA: [id number] Albumin/Creatinine Ratio, Urine 5 0-30 ug/m g Microalbumin, Urine, Random 0.6 Creatinine, Urine 124.9 P-Vitamin D 25-Hydroxy Reviewed date:12/27/2024 11:14:56 AM Interpretation:40.7 Performing Lab: Notes/Report: Test performed by [facility] [address] [place] [address] , [address], [place] [address] Juan R Mendez MD, Oil Field Equipment Mechanic Supervisor CLIA: [id number] Vitamin D 25-Hydroxy 40.7 30.0-100.0 ng/mL Interpretation of Vitamin D 25 OH: < 20 ng/mL - Deficiency 20 - 29 ng/mL - Insufficiency 30 - 100 ng/mL - Sufficiency > 100 ng/mL - Super-therapeutic- toxicity may occur above this level. Clinical correlation required. P-Vitamin D 25-Hydroxy Reviewed date:03/06/2024 10:37:06 AM Interpretation:48.9 Performing Lab: Notes/Report: Test performed by [facility] [address] [place] [address] , [address], [place] [address] Juan R Mendez MD, Oil Field Equipment Mechanic Supervisor CLIA: [id number] Vitamin D 25-Hydroxy 48.9 30.0-100.0 ng/mL Interpretation of Vitamin D 25 OH: < 20 ng/mL - Deficiency 20 - 29 ng/mL - Insufficiency 30 - 100 ng/mL - Sufficiency > 100 ng/mL - Super-therapeutic- toxicity may occur above this level. Clinical correlation required. P-Lipid Panel Reviewed date:03/06/2024 10:37:06 AM Interpretation:non-hdl 135 Performing Lab: Notes/Report: Test performed by [facility] [address] [place] [address] , [address], [place] [address] Juan R Mendez MD, Oil Field Equipment Mechanic Supervisor CLIA: [id number] Cholesterol 176 <200 mg/dL Triglycerides 96 <150 [...] Results: 116 Units: mg/dL % Change: -21% P-Comprehensive Metabolic Pa aydin (CMP) Reviewed date:03/06/2024 10:37:06 AM Interpretation:gluc 109 Performing Lab: Notes/Report: Test performed by [facility] , [address], [place] [address] Juan R Mendez MD, Oil Field Equipment Mechanic Supervisor CLIA: [id number] Sodium 141 135-145 mmol/L Potassium 4.6 3.5-5.3 [...] 0.6 <0.2-1.2 mg/dL A/G Ratio 1.3 1.1-2.5 Glycohemoglobin A1c (in hous e) Reviewed date:03/06/2024 10:37:06 AM Interpretation:5.9 Performing Lab: Notes/Report: 5.9 glycohemoglobin 5.9% 5 - 6.5 % Glucose (In-House) Reviewed date:03/06/2024 10:37:06 AM Interpretation:138 Performing Lab: Notes/Report: 138 blood glucose 138 74 - 106 mg/dL MRI : Brain with and without contrast Reviewed date:10/16/2024 12:31:09 PM Interpretation: Performing Lab: Notes/Report: MRI : Brain with and w/o con trast Reviewed date:04/19/2024 01:52:12 PM Interpretation:No acute hemorrhagic or ischemic infarct. Mild to moderate chronic microvascular ischemic disease and generalized age appro Performing Lab: Notes/Report: No acute hemorrhagic or ischemic infarct. Mild to moderate chronic microvascular ischemic disease and generalized age appro H-BUN/CREAT Reviewed date:04/19/2024 01:55:50 PM Interpretation:Normal Performing Lab: Notes/Report: BUN 9 7-17 mg/dl CREATT 0.80 0.52-1.04 mg/dl GFRAA 85 >60 ML/MIN EGFR 71 >60 ml/min Reason For Referral Diagnosis 1 Sinus pressure (J34. 89) Referral Organization [facility] Referring Provider First Name Mickey Referring Provider Last Name Maximiliano Referring Provider Speciality Family Pra ctice Referred Provider Machelle Greene Referred Provider Specialty ENT General Notes Helen Garcia 2024 02:42:43 PM > faxed to [facility] Radha BARNES Brynn 12/28/2024 11:33:33 AM > spoke with Cristina; referral received Referral Priority Routine Medications Medication SIG (Take, Route, Frequency, Duration) Notes Start Date End Date Status Atorvastatin Calcium 40 MG 1 tab(s) oral ly once a day; Duration: 90 days Active Omeprazole 40 mg 1 cap(s) Orally Once a day; Duration: 90 days Active Valsartan 160 MG 1 tablet Orally Once a day; Duration: 30 days Active Gabapentin 800 MG 1 tab(s) orally 3 ti mes a day; Duration: 30 days 01/02/2025 Active Ezetimibe 10 MG 1 tablet Orally Once a day; Duration: 90 days 12/27/2024 Active Social History Tobacco Use: Social History Observation Description Date Details (start date - stop date) Current Smoker NA - NA CURRENT TOBACCO USE: Question Answer Notes Are you a: current smoker How many cigarettes a day do you smoke? 11-20 Problems Problem Type SNOMED Code ICD Code Onset Dates Problem Status W/U Status Risk Notes Problem Gastroesophageal reflux disease (313492145) GERD (gastroesophageal reflux disease) (K21.9) Active confirmed Problem Vitamin D deficiency (90674638) Vitamin D deficiency (E55.9) Active confirmed Problem Essential hypertension (04485984) Essential hypertension (I10) Active confirmed Problem Mixed anxiety and depressive disorder (695745006) Depression with anxiety (F41.8) Active confirmed Problem Body mass index 30+ - obesity (711028394) BMI 30.0-30.9,adult (Z68.30) Active confirmed Problem Pathological fracture of vertebra (359469897) Vertebral compression fracture (M48.50XA) Active confirmed Problem Primary generalised osteoarthritis (566125789) Primary generalized (osteo)arthritis (M15.0) Active confirmed Problem Chronic pain (98186184) Other chronic pain (G89.29) Active confirmed Problem Chronic pain syndrome (946979223) Chronic pain syndrome (G89.4) Active confirmed Problem Sciatica (84199370) Lumbago with sciatica, unspecified side (M54.40) Active confirmed Problem Reactive depression (situational) (14209342) Situational depression (F43.21) Active confirmed Problem COPD - Chronic obstructive pulmonary disease (03612037) Chronic obstructive pulmonary disease, unspecified COPD type (J44.9) Active confirmed Problem Osteoporosis (95604544) Osteoporosis (M81.0) Active confirmed Problem Acute sinusitis (11767571) Acute sinusitis, recurrence not specified, unspecified location (J01.90) Active confirmed Problem Dyslipidemia (795868362) Dyslipidemia (E78.5) Active confirmed Problem Impaired fasting glycaemia (006001204) IFG (impaired fasting glucose) (R73.01) Active confirmed Problem Abdominal aortic aneurysm without rupture (disorder) (44265345) Abdominal aortic aneurysm (AAA) without rupture (I71.4) Active confirmed Problem Tobacco use (485649837) Tobacco use disorder (F17.200) Active confirmed Problem Acquired spondylolisthesis (714482368) Lumbar spondylolysis (M43.06) Active confirmed Problem Allergic rhinitis (09559235) Allergic rhinitis, unspecified seasonality, unspecified trigger (J30.9) Active confirmed Problem 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) Active confirmed Problem Gastroesophageal reflux disease (127052315) Gastroesophageal reflux disease, unspecified whether esophagitis present (K21.9) Active confirmed Vital Signs Heart Rate 95 /min 12/25/2024 Blood pressure diastolic 88 mm Hg 12/25/2024 Height 61 in 12/25/2024 Blood pressure systolic 140 mm Hg 12/25/2024 Weight 161 lbs 12/25/2024 BMI 30.42 kg/m2 12/25/2024 Encounters Encounter Location Date Provider Diagnosis [facility] [address] [place] [id number] 03/03/2024 Mickey Glendale Dyslipidemia E78.5 ; Vitamin D deficiency E55.9 ; Essential hypertension I10 ; Allergic rhinitis, unspecified seasonality, unspecified trigger J30.9 and IFG (impaired fasting glucose) R73.01 [facility] [address] [facility] [address] [place] [id number] 04/06/2024 Mickey [place] Daily headache R51.9 and Blurry vision H53.8 [facility] [address] [place], [place] [id number] 12/25/2024 Mickey Glendale Dyslipidemia E78.5 ; Essential hypertension I10 ; GERD (gastroesophageal reflux disease) K21.9 ; Vitamin D deficiency E55.9 ; Sinus pressure J34.89 ; Screening for lung cancer Z12.2 ; Personal history of nicotine dependence Z87.891 ; longterm use of drug Z79.899 ; Chronic obstructive pulmonary disease, unspecified COPD type J44.9 and BMI 30.0-30.9,adult Z68.30 [facility] [address] [place], [place] [id number] 01/09/2025 Mickey Glendale [facility] [address] [place], [place] [id number] 03/06/2024 Mickey [place] [facility] [address] [place], [place] [id number] 04/19/2024 Mickey Glendale [facility] [address] [place], [place] [id number] 06/28/2024 Mickey [place] Lumbago with sciatic a, unspecified side M54.40 [facility] [address] [place], [place] [id number] 12/13/2024 Mickey Glendale [facility] [address] [place], [place] [id number] 12/27/2024 Mickey Glendale [facility] [address] [place], [place] [id number] 01/02/2025 Mickey Glendale Lumbago with sciatic a, unspecified side M54.40 Assessments Encounter Date Diagnosis (ICD Code) Assessment Notes Treatment Notes Treatment Clinical Notes Section Notes 03/03/2024 Vitamin D deficiency (ICD-10 - E55.9) 03/03/2024 Dyslipidemia (ICD-10 - E78.5) 04/06/2024 Blurry vision (ICD-10 - H53.8) 04/06/2024 Daily headache (ICD-10 - R51.9) 06/28/2024 Lumbago with sciatica, unspecified side (ICD-10 - M54.40) 12/25/2024 Essential hypertension (ICD-10 - I10) 12/25/2024 Dyslipidemia (ICD-10 - E78.5) 01/02/2025 Lumbago with sciatica, unspecified side (ICD-10 - M54.40) 12/25/2024 GERD (gastroesophageal reflux disease) (ICD-10 - K21.9) 03/03/2024 Essential hypertension (ICD-10 - I10) 12/25/2024 Vitamin D deficiency (ICD-10 - E55.9) 03/03/2024 Allergic rhinitis, unspecified seasonality, unspecified trigger (ICD-10 - J30.9) 12/25/2024 Sinus pressure (ICD-10 - J34.89) 03/03/2024 IFG (impaired fasting glucose) (ICD-10 - R73.01) 12/25/2024 Screening for lung cancer (ICD-10 - Z12.2) 12/25/2024 Personal history of nicotine dependence (ICD-10 - Z87.891) 12/25/2024 longterm use of drug (ICD-10 - Z79.899) 12/25/2024 Chronic obstructive pulmonary disease, unspecified COPD type (ICD-10 - J44.9) 12/25/2024 BMI 30.0-30.9,adult (ICD-10 - Z68.30) Plan Of Treatment Pending Test Test Name Order Date CT Scan : Chest, low dose 12/25/2024 Next Appt Details Provider Name:Mickey Riddle , 06/29/2025 02:00:00 PM, [address] [facility] 36 [facility], [address], [place], [place], [id number], Insurance Providers Payer Name Payer Address Payer Phone Subscriber Number Group Number Insured Name Patient Relationship to Insured Coverage Start Date Coverage End Date MEDICARE PART B [address] [address] [place] [address] [id number] BERNICE JEFFERS Self - patient is the insured [facility] [address] [place], [place] [id number] BERNICE JEFFERS Self - patient is the insured Medications Administered Medication Instructions Date of Administration Dosage Notes Toradol 12/02/2018 1 mL Medical (General) History Medical History History ICD Code Uterine Cancer Bilateral Foot Bone Spurs Tobacco use disorder COPD Osteoarthritis low back pain, MRI 2018 Degenerative Disc Disease Lumbar Disc Disease Lumbar facet arthropathy Hyperlipidemia 50 pack year smoking history as of 2019 Abdominal Aortic Aneurysm, Dx 2019 (2.4 cm in diameter at that time) Vitamin D deficiency Impaired fasting glucose Surgical History Surgery Date(Month/Year) Partial Hysterectomy Cholecystectomy Cataracts [facility]
[2025-01-16 11:12] LABS: I006-IgE Cockroach, German <0.10 kU/L (Class 0); T006-IgE Cedar, Mountain <0.10 kU/L (Class 0); T007-IgE Oak, White <0.10 kU/L (Class 0); T008-IgE Elm, American <0.10 kU/L (Class 0); T015-IgE Ash, White <0.10 kU/L (Class 0); T022-IgE Pecan, Hickory <0.10 kU/L (Class 0); W001-IgE Ragweed, Short <0.10 kU/L (Class 0); W011-IgE Thistle, Russian <0.10 kU/L (Class 0); W014-IgE Pigweed, Common <0.10 kU/L (Class 0)
== END 2025-01-11 23:59 | disposition home or self-care (01) ==
LOC: LAB 15:39
PROVIDERS: PCP Family Medicine; Visit Provider Nurse Practitioner
DX: T78.40XA Allergy, unspecified, initial encounter (principal); J32.0 Chronic maxillary sinusitis; R09.81 Nasal congestion
CPT/HCPCS: 36415; 82785; 86003

== ENCOUNTER 2025-02-05 09:07 | Outpatient (CLI) | payer MEDICARE, OTHER, SELFPAY ==
--- OUTSIDE RECORDS SUMMARY | 2024-04-06 07:15 | XMS_ITS ---
Author Organization [facility] Address [address] [place] [id number] Care Team Providers Care Waterway Traffic Checker Name Role Phone Mickey Viera Primary Care Provider [phone] Allergies Allergen (clinical drug ingredient) Drug/Non Drug [...] cigarettes a day do you smoke? 05-03 Vital Signs Weight 170.2 lbs 04/06/2024 Blood pressure systolic 168 mm Hg 04/06/20 Blood pressure diastolic 88 mm Hg 024 Heart Rate 97 /min 04/06/2024 Height 61 in 04/06/2024 BMI 32.16 kg/m2 04/06/2024 Encounters Encounter Location Date Provider Diagnosis [facility] [address] [facility] [address] [facility] [address] [place] [id number] 04/06/2024 Mickey Viera Daily headache R51.9 and Blurry vision H53.8 Assessments Encounter Date Diagnosis (ICD Code) Assessment Notes Treatment Notes Treatment Clinical Notes Section Notes 04/06/2024 Daily headache (ICD-10 - R51.9) 04/06/2024 Blurry vision (ICD-10 - H53.8) Plan Of Treatment Next Appt Details Follow Up: via phone to repo rt test results, Reason: Provider Name:Mickey Riddle ry, 06/29/2025 02:00:00 PM, [address] [facility] [address] [facility], [address], [place], [id number], Progress Notes * JOHN JEFFERSNATB:1950 (75 yo F)Acc No.[id number]:04/06/2024 Progress Notes Patient: BERNICE GAYTAN Provider: Lenin Viera M.D. :1950 A ge:74 Y S ex:Female Date:04/06/2024 Address: [address], [id number] Subjective: * Chief Complaints: * 1 . [...] it is. Pt states she has seen eyelet punch operator and was told that it is not [...] * Hospitalization/Major Diagno stic Procedure: S OA- [facility] ER 01/08/2020. * Family History: F ather: [...] AM > no auth required; CPT code 30686; faxed to [facility] Mai Lee 10/16/2024 12:31:00 PM >see 04/19/24 TE * Procedure Codes: G 2211 Complex e/m visit add on * Follow Up: v ia phone to report test results * Images: Billing Information: * Visit Code: 56972 Office Visit, Est Pt., Level 3. * Procedure Codes: G2211 Complex e/m visit add on. * Electronic signature of Jeanie Viera MD on 02/05/2025 at 09:47 AM EDT Sign off status: Pending * Provider: Lenin Viera M.D. Date: Generated for Manas jaramillo/Inez/eTransmitting on: 0 02/05/2025 09:47 AM EDT History and Physical Notes * HPI [...] it is. Pt states she has seen eyelet punch operator and was told that it is not her eyes. Pt states this has been going on for a while Examination Category Sub-Category Detail Notes Category Not es General Examination General Appearance: NAD
--- OUTSIDE RECORDS SUMMARY | 2024-12-25 10:00 | XMS_ITS ---
Author Organization [facility] Address [address] [facility] [address] [place] [id number] Care Team Providers Care Commercial Pilot Name Role Phone Mickey Viera Primary Care [...] 104 Performing Lab: Notes/Report: Test performed by [employer], [facility] , [address], [place] [address] Juan R Mendez MD, [employer] CLIA: [id number] Sodium 139 135-145 mmol/L Potassium 4.6 3.5-5.3 [...] 4.5 Performing Lab: Notes/Report: Test performed by [employer] [address] [place] [address] , [address], [place] [address] Juan R Mendez MD, [employer] CLIA: [id number] Cholesterol 272 <200 mg/dL Triglycerides 131 <150 [...] Interpretation:Normal Performing Lab: Notes/Report: Test performed by [employer] [address] [place] [address] , [place] [address] Juan R Mendez MD, [employer] CLIA: [id number] TSH reflex to FT4 1.42 0.43-5.25 mU/L P-Microalbumin/Creatinine, R andom Urine Sample Reviewed date:12/27/2024 11:14:56 AM Interpretation:Normal Performing Lab: Notes/Report: Test performed by [employer] [address] [place] [address] , [address], [place] [address] Juan R Mendez MD, [employer] CLIA: [id number] Albumin/Creatinine Ratio, Urine 5 0-30 ug/m g Microalbumin, Urine, Random 0.6 Creatinine, Urine 124.9 P-Vitamin D 25-Hydroxy Reviewed date:12/27/2024 11:14:56 AM Interpretation:40.7 Performing Lab: Notes/Report: Test performed by [employer], [employer] [address] [place] [address] , [address], [place] [address] Juan R Mendez MD, [employer] CLIA: [id number] Vitamin D 25-Hydroxy 40.7 30.0-100.0 ng/mL Interpretation of Vitamin D 25 OH: < 20 ng/mL - Deficiency 20 - 29 ng/mL - Insufficiency 30 - 100 ng/mL - Sufficiency > 100 ng/mL - Super-therapeutic- toxicity may occur above this level. Clinical correlation required. Reason For Referral Diagnosis 1 Sinus pressure (J34. 89) Referral Organization [facility] Referring Provider First Name Mickey Referring Provider Last Name Maximiliano Referring Provider Speciality Family [facility] aureice Referred Provider Machelle Greene Referred Provider Specialty ENT General Notes Helen Garcia 2024 02:42:43 PM > faxed to [facility] Radha BARNES Brynn 12/28/2024 11:33:33 AM > [...] Problem Status W/U Status Risk Notes Problem BMI 30.0-30.9,ad ult (Z68.30) Active confirmed Vital Signs Weight 161 lbs 12/25/2024 Blood pressure systolic 140 mm Hg 12/26/19 25 Blood pressure diastolic 88 mm Hg 025 Heart Rate 95 /min 12/25/2024 Height 61 in 12/25/2024 BMI 30.42 kg/m2 12/25/2024 Encounters Encounter Location Date Provider Diagnosis [facility] [address] [place] [id number] 12/25/2024 Mickey Viera Dyslipidemia E78.5 ; Essential hypertension I10 ; GERD (gastroesophageal reflux disease) K21.9 ; Vitamin D deficiency E55.9 ; Sinus pressure J34.89 ; Screening for lung cancer Z12.2 ; Personal history of nicotine dependence Z87.891 ; detention use of drug Z79.899 ; Chronic obstructive [...] of nicotine dependence (ICD-10 - Z87.891) 12/25/2024 intermediate teacher use of drug (ICD-10 - Z79.899) 12/25/2024 [...] Referrals Referral Date Details 12/25/2024 12/25/2024, Machelle Brown Appt Details Follow Up: 6 Months, Reason: Provider Name:Mickey garvey, 06/29/2025 02:00:00 PM, [address], [address], [place], [place], [id number], Progress Notes * KELLY JEFFERS:1950 (75 yo F)Acc No.[id number]:12/25/2024 Progress Notes Patient: BERNICE GAYTAN Provider: Lenin Viera M.D. :1950 A ge:74 Y S ex:Female Date:12/25/2024 Address: [address], [place] , [id number] Subjective: * Chief Complaints: * 1 . [...] * Hospitalization/Major Diagno stic Procedure: S OA- [facility] ER 01/08/2020. * Family History: [...] nicotine dependence - Z87.891 8 . L tiffayn term use of drug - Z79.899 9 . C hronic obstructive pulmonary disease, unspecified COPD type - J44.9 1 0. B MS 30.0-30.9,adult - Z68.30 Plan: * Treatment: Value [...] to FT4 1.42 0.43-5.25 - mU/L * Mai Vance 12/27/2024 11:1 4:45 AM [...] EDT > no auth required; CPT code 15869 7.?Personal history of nicotine dependence?Imaging: CT Scan : Chest, low dose* Helen Garcia 12/25/2024 02:4 1:24 PM EDT > no auth required; CPT code 60488 8.?detention use of drug?LAB: CBC Venipuncture (in house) [...] G 2211 Complex e/[place], [address] CBC WITH AUTO DIFF, G8950 PREHTN/HTN BP DOC INDCD F/U DOC, G8753 MOST RECENT SYSTOLIC BP >= 140MM HG, G8754 MOST RECENT DIASTOLIC BP < 90MM HG * Follow Up: 6 Months * Images: Billing Information: * Visit Code: 37120 Office Visit, Est Pt., Level 4. * Procedure Codes: G2211 Complex e/[place]. [address] CBC WITH AUTO DIFF. G8950 PREHTN/HTN BP DOC INDCD F/U DOC. G8753 MOST RECENT SYSTOLIC BP >= 140MM HG. G8754 MOST RECENT DIASTOLIC BP < 90MM HG. * Electronic signature of Jeanie Viera MD on 02/05/2025 at 09:46 AM EDT Sign off status: Pending * Provider: Lenin Viera M.D. Date: 0 12/25/2024 Generated for Ebonyi ng/Faxing/eTransmitting on: 0 02/05/2025 09:46 AM EDT History and Physical Notes * [...]
--- OUTSIDE RECORDS SUMMARY | 2025-01-09 05:09 | XMS_ITS ---
Author Organization [facility] Address [address] [place], [place] [id number] Care Team Providers Care Gradall Operator Name Role Phone Mickey Viera Primary Care Provider REASON FOR VISIT due col,frederic,dexa Encounters Encounter Location Date Provider [facility] 36 [facility] [address] [place] [id number] 01/09/2025 Mickey Viera Osteoporosis M81.0 a nd Encounter for screening for osteoporosis Z13.820 Assessments Encounter Date Diagnosis (ICD Code) Assessment Notes Treatment Notes Treatment Clinical Notes Section Notes 01/09/2025 Osteoporosis (ICD-10 - M81.0) 01/09/2025 Encounter for screening for osteoporosis (ICD-10 - Z13.820) Plan Of Treatment Next Appt Details Provider Name:Mickey Riddle , 06/29/2025 02:00:00 PM, 1210 [facility] 36 [facility], [address], [place], [place], [id number], Progress Notes * ZEYADJOHNNATB:1950 (74 yo F)Acc No.[id number]:01/09/2025 Patient: BERNICE GAYTAN :1950 A ge:74 Y S ex:Female Address:[address] [place], [address] Subjective: * Chief Complaints: * D ue [...] 01/17/2025 03:44 :25 PM EDT >sent to [facility] for referral to [facility] * Procedure Codes: * true * Date: Generated for Manas jaramillo/Inez/Velvetitting on: 0 02/05/2025 09:46 AM EDT
--- NOTE | 2025-02-05 09:11 | XR_ITS ---
FINAL REPORT TECHNIQUE: Bone densitometry calculations of the lumbar spine and bilateral hips were obtained. CLINICAL HISTORY: SCREENING COMPARISON: None FINDINGS: Using L1-4, the bone mineral density of the spine is 0.878 g/cm2, corresponding to T-score of -1.5 and a Z score of 0.7. This is within the range of osteopenia. Using the left hip, the bone mineral density of the femoral neck is 0.607 g/cm2, corresponding to a T-score of -2.7 and a Z-score of -1.1. This is within the range of osteoporosis. Using the right hip, the bone mineral density of the femoral neck is 0.562 g/cm?, corresponding to a T-score of -2.6 and a Z-score of -0.6. This is within the range of osteoporosis. NOTE: T-score: Standard deviation compared with peak bone mass of young adult mean. *Following the recommendations of the International Society of Bone densitometry, classification of hip BMD is based on the lower of two T-scores; total hip or femoral neck. IMPRESSION: 1. Bone mineral density of the lumbar spine within the range of osteopenia. 2. Bone mineral density of the bilateral femoral necks within the range of osteoporosis. Reviewed, Interpreted and Dictated by Calli Menendez MD Transcribed by Nicol Castillo Authenticated and [facility]
--- OUTSIDE RECORDS SUMMARY | 2025-02-05 09:48 | XMS_ITS | Patient Health Record ---
Author Organization [facility] Address [address] [place] [id number] Care Team Providers Care Energy Consultant Name Role Phone Mickey Viera Primary [...] 104 Performing Lab: Notes/Report: Test performed by [facility] , [address], [place] [address] Juan R Mendez MD, Global Position System Technician CLIA: [id number] Sodium 139 135-145 mmol/L Potassium 4.6 3.5-5.3 [...] 4.5 Performing Lab: Notes/Report: Test performed by [facility], [address] , [address], [place] [address] Juan R Mendez MD, Global Position System Technician CLIA: [id number] Cholesterol 272 <200 mg/dL Triglycerides 131 <150 [...] Interpretation:Normal Performing Lab: Notes/Report: Test performed by [facility] [address] [place] [address] [place] [address] Juan R Mendez MD, Global Position System Technician CLIA: [id number] TSH reflex to FT4 1.42 0.43-5.25 mU/L P-Microalbumin/Creatinine, R andom Urine Sample Reviewed date:12/27/2024 11:14:56 AM Interpretation:Normal Performing Lab: Notes/Report: Test performed by [facility] [address] [place] [address] , [place] [address] Juan R Mendez MD, Global Position System Technician CLIA: [id number] Albumin/Creatinine Ratio, Urine 5 0-30 ug/m g Microalbumin, Urine, Random 0.6 Creatinine, Urine 124.9 P-Vitamin D 25-Hydroxy Reviewed date:12/27/2024 11:14:56 AM Interpretation:40.7 Performing Lab: Notes/Report: Test performed by [facility] [address] [place], [place] [address] , Martín C, [place] [address] Juan R Mendez MD, Global Position System Technician CLIA: [id number] Vitamin D 25-Hydroxy 40.7 30.0-100.0 ng/mL Interpretation of Vitamin D 25 OH: < 20 ng/mL - Deficiency 20 - 29 ng/mL - Insufficiency 30 - 100 ng/mL - Sufficiency > 100 ng/mL - Super-therapeutic- toxicity may occur above this level. Clinical correlation required. MRI : Brain with and w/o con trast Reviewed date:04/19/2024 01:52:12 PM Interpretation:No acute hemorrhagic or ischemic infarct. Mild to moderate chronic microvascular ischemic disease and generalized age appro Performing Lab: Notes/Report: No acute hemorrhagic or ischemic infarct. Mild to moderate chronic microvascular ischemic disease and generalized age appro MRI : Brain with and without contrast Reviewed date:10/16/2024 12:31:09 PM Interpretation: Performing Lab: Notes/Report: P-Vitamin D 25-Hydroxy Reviewed date:03/06/2024 10:37:06 AM Interpretation:48.9 Performing Lab: Notes/Report: Test performed by [facility] [address] [place], [place] [address] , [facility] [place] [id number] Juan R Mendez MD, Global Position System Technician CLIA: [id number] Vitamin D 25-Hydroxy 48.9 30.0-100.0 ng/mL Interpretation of Vitamin D 25 OH: < 20 ng/mL - Deficiency 20 - 29 ng/mL - Insufficiency 30 - 100 ng/mL - Sufficiency > 100 ng/mL - Super-therapeutic- toxicity may occur above this level. Clinical correlation required. P-Lipid Panel Reviewed date:03/06/2024 10:37:06 AM Interpretation:non-hdl 135 Performing Lab: Notes/Report: Test performed by [facility] [address] [place] [address] , Martín C, [place] [address] Juan R Mendez MD, Global Position System Technician CLIA: [id number] Cholesterol 176 <200 mg/dL Triglycerides 96 <150 [...] 109 Performing Lab: Notes/Report: Test performed by [facility], [address] , [address], [place] [address] Juan R Mendez MD, Global Position System Technician CLIA: [id number] Sodium 141 135-145 mmol/L Potassium 4.6 3.5-5.3 [...] blood glucose 138 74 - 106 mg/dL H-BUN/CREAT Reviewed date:04/19/2024 01:55:50 PM Interpretation:Normal Performing Lab: Notes/Report: BUN 9 7-17 mg/dl CREATT 0.80 0.52-1.04 mg/dl GFRAA 85 >60 ML/MIN EGFR 71 >60 ml/min Reason For Referral Diagnosis 1 Sinus pressure (J34. 89) Referral Organization [facility] Referring Provider First Name Mickey Referring Provider Last Name Maximiliano Referring Provider Speciality Family Pra ctice Referred Provider Machelle Greene Referred Provider Specialty ENT General Notes Helen Garcia 2024 02:42:43 PM > faxed to [facility] Radha BARNES Brynn 12/28/2024 11:33:33 AM > [...] Status Risk Notes Problem Gastroesophageal reflux disease (293253331) GERD (gastroesophageal reflux disease) (K21.9) Active confirmed Problem Vitamin D deficiency (96239660) Vitamin D deficiency (E55.9) Active confirmed Problem Essential hypertension (64119273) Essential hypertension (I10) Active confirmed Problem Mixed anxiety and depressive disorder (214268120) Depression with anxiety (F41.8) Active confirmed Problem Body mass index 30+ - obesity (089847164) BMI 30.0-30.9,adult (Z68.30) Active confirmed Problem Pathological fracture of vertebra (159500658) Vertebral compression fracture (M48.50XA) Active confirmed Problem Primary generalised osteoarthritis (626149937) Primary generalized (osteo)arthritis (M15.0) Active confirmed Problem Chronic pain (68905478) Other chronic pain (G89.29) Active confirmed Problem Chronic pain syndrome (967752900) Chronic pain syndrome (G89.4) Active confirmed Problem Sciatica (88102564) Lumbago with sciatica, unspecified side (M54.40) Active confirmed Problem Reactive depression (situational) (45656306) Situational depression (F43.21) Active confirmed Problem COPD - Chronic obstructive pulmonary disease (42029584) Chronic obstructive pulmonary disease, unspecified COPD type (J44.9) Active confirmed Problem Osteoporosis (53059451) Osteoporosis (M81.0) Active confirmed Problem Acute sinusitis (16795112) Acute sinusitis, recurrence not specified, unspecified location (J01.90) Active confirmed Problem Dyslipidemia (655439159) Dyslipidemia (E78.5) Active confirmed Problem Impaired fasting glycaemia (716607899) IFG (impaired fasting glucose) (R73.01) Active confirmed Problem Abdominal aortic aneurysm without rupture (disorder) (17631054) Abdominal aortic aneurysm (AAA) without rupture (I71.4) Active confirmed Problem Tobacco use (625464265) Tobacco use disorder (F17.200) Active confirmed Problem Acquired spondylolisthesis (906989357) Lumbar spondylolysis (M43.06) Active confirmed Problem Allergic rhinitis (98658998) Allergic rhinitis, unspecified seasonality, unspecified trigger (J30.9) Active confirmed Problem 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) Active confirmed Problem Gastroesophageal reflux disease (050151835) Gastroesophageal reflux disease, unspecified whether esophagitis present (K21.9) Active confirmed Vital Signs Heart Rate 95 /min 12/25/2024 Blood pressure diastolic 88 mm Hg 12/25/2024 Height 61 in 12/25/2024 Blood pressure systolic 140 mm Hg 12/25/2024 Weight 161 lbs 12/25/2024 BMI 30.42 kg/m2 12/25/2024 Encounters Encounter Location Date Provider Diagnosis [facility] [address] [place] [id number] 03/03/2024 Mickey Rome Dyslipidemia E78.5 ; Vitamin D deficiency E55.9 ; Essential hypertension I10 ; Allergic rhinitis, unspecified seasonality, unspecified trigger J30.9 and IFG (impaired fasting glucose) R73.01 [facility] [address] [facility] [address] [place] [id number] 04/06/2024 Mickey Rome Daily headache R51.9 and Blurry vision H53.8 [facility] [address] [place], [place] [id number] 12/25/2024 Mickey Rome Dyslipidemia E78.5 ; Essential hypertension I10 ; GERD (gastroesophageal reflux disease) K21.9 ; Vitamin D deficiency E55.9 ; Sinus pressure J34.89 ; Screening for lung cancer Z12.2 ; Personal history of nicotine dependence Z87.891 ; [facility]FP use of drug Z79.899 ; Chronic obstructive pulmonary disease, unspecified COPD type J44.9 and BMI 30.0-30.9,adult Z68.30 [facility] [address] [place], [place] [id number] 03/06/2024 Mickey Rome [facility] [address] [place], [place] [id number] 04/19/2024 Mickey Rome [facility] [address] [place], [place] [id number] 06/28/2024 Mickey Rome Lumbago with sciatic a, unspecified side M54.40 [facility] [address] [place], [place] [id number] 12/13/2024 Mickey Rome [facility] [address] [place], [place] [id number] 12/27/2024 Mickey Rome [facility] [address] [place], [place] [id number] 01/02/2025 Mickey Rome Lumbago with sciatic a, unspecified side M54.40 [facility] [address] [place], [place] [id number] 01/09/2025 Mickey Rome Osteoporosis M81.0 a nd Encounter for screening [...] with sciatica, unspecified side (ICD-10 - M54.40) 01/09/2025 Encounter for screening for osteoporosis (ICD-10 - Z13.820) 01/09/2025 Osteoporosis (ICD-10 - M81.0) 12/25/2024 GERD (gastroesophageal reflux disease) (ICD-10 - K21.9) 03/03/2024 Essential hypertension (ICD-10 - I10) 12/25/2024 Vitamin D deficiency (ICD-10 - E55.9) 03/03/2024 Allergic rhinitis, unspecified seasonality, unspecified trigger (ICD-10 - J30.9) 12/25/2024 Sinus pressure (ICD-10 - J34.89) 03/03/2024 IFG (impaired fasting glucose) (ICD-10 - R73.01) 12/25/2024 Screening for lung cancer (ICD-10 - Z12.2) 12/25/2024 Personal history of nicotine dependence (ICD-10 - Z87.891) 12/25/2024 terminal superintendent use of drug (ICD-10 - Z79.899) 12/25/2024 Chronic obstructive pulmonary disease, unspecified COPD type (ICD-10 - J44.9) 12/25/2024 BMI 30.0-30.9,adult (ICD-10 - Z68.30) Plan Of Treatment Pending Test Test Name Order Date Bone density 01/17/2025 CT Scan : Chest, low dose 12/25/2024 Next Appt Details Provider Name:Mickey garvey, 06/29/2025 02:00:00 PM, [address], [address], [place], [place], [id number], Insurance Providers Payer Name Payer Address Payer Phone Subscriber Number Group Number Insured Name Patient Relationship to Insured Coverage Start Date Coverage End Date MEDICARE PART B [address] [address] [place] [id number] BERNICE JEFFERS Self - patient is the insured [facility] [address] [place], [place] [id number] [phone] [id number] BERNICE JEFFERS Self - patient is the insured Medications Administered Medication Instructions Date of Administration Dosage Notes Toradol 12/02/2018 1 mL Medical (General) History Medical History History ICD Code Uterine Cancer Bilateral Foot Bone Spurs Tobacco use disorder COPD Osteoarthritis low back pain, MRI 2019 Degenerative Disc Disease Lumbar Disc Disease Lumbar facet arthropathy Hyperlipidemia 50 pack year smoking history as of 2019 Abdominal Aortic Aneurysm, Dx 2019 (2.4 cm in diameter at that time) Vitamin D deficiency Impaired fasting glucose Surgical History Surgery Date(Month/Year) Partial Hysterectomy Cholecystectomy Cataracts Hospitalization History Reason Date(Month/Year) [facility] ER 01/08/2020
== END 2025-02-05 23:59 ==
LOC: RAD 09:09
PROVIDERS: PCP Family Medicine; Visit Provider Family Medicine
DX: M81.0 Age-related osteoporosis without current pathological fracture (principal); Z78.0 Asymptomatic menopausal state
CPT/HCPCS: 77080

== ENCOUNTER 2025-02-20 13:12 | Outpatient (CLI) | payer MEDICARE, OTHER, SELFPAY ==
--- OUTSIDE RECORDS SUMMARY | 2024-01-05 10:00 | XMS_ITS ---
Author Organization [facility] Address [address] [facility] [address] [place] [id number] Care Team Providers Care Sheet Metal Insulator Name Role Phone Mickey Viera Primary Care Provider [phone] Allergies Allergen (clinical drug ingredient) Drug/Non Drug Allergy documented on EMR Reaction Allergy Type Onset Date Status hydrocodone HYDROcodone makes sick Drug Allergy Active Penicillin passed out Drug Allergy Activ e Results Component Value Reference Range Notes CBC Fingerstick (in house) Reviewed date:01/06/2024 08:49:55 AM Interpretation: Performing Lab: Notes/Report: wbc 8.3 3.5 - 10 lym 27.6% 15 - 50 mid 6.4% 2 - 15 gran 66.0% 35 - 80 rbc 4.19 3.5 - 5.5 hgb 12.9 11.5 - 16.5 hct 39.4 35 - 55 mcv 94.0 75 - 100 mch 30.9 25 - 35 mchc 32.9 31 - 38 plat 303 100 - 400 REASON FOR VISIT possible sinus infection and eye infection Medications Medication SIG (Take, Route, Frequency, Duration) Notes Start Date End Date Status Fluticasone Propionate 50 MCG/ACT 1 spray in each nostril Nasally Once a day 01/05/2024 Active Atorvastatin Calcium 40 MG 1 tab(s) oral ly once a day; Duration: 90 days Active Cefdinir 300 MG 1 cap(s) Orally Two times a day; Duration: 7 days 01/05/2024 Active Gabapentin 800 MG 1 tab(s) orally 3 ti mes a day; Duration: 30 days 12/06/2023 Active Omeprazole 40 MG 1 cap(s) orally once a day Active Meloxicam 7.5 MG 1 tablet Orally Once a day; Duration: 30 day(s) 11/26/2023 Active Valsartan 160 MG 1 tablet Orally Once a day; Duration: 30 days 10/29/2023 Active Social History Tobacco Use: Social History Observation Description Date Details (start date - stop date) Current Smoker NA - NA CURRENT TOBACCO USE: Question Answer Notes Are you a: current smoker How many cigarettes a day do you smoke? - Problems Problem Type SNOMED Code ICD Code Onset Dates Problem Status W/U Status Risk Notes Problem Acute sinusitis (07651688) Acute sinusitis, recurrence not specified, unspecified location (J01.90) Active confirmed Vital Signs Blood pressure systolic 160 mm Hg 01/05/20 Blood pressure diastolic 90 mm Hg 024 Heart Rate 99 /min 01/05/2024 Height 61 in 01/05/2024 Weight 169 lbs 01/05/2024 BMI 31.93 kg/m2 01/05/2024 Encounters Encounter Location Date Provider Diagnosis [facility] [address] [facility] [address] [place] [id number] 01/05/2024 Mickey Viera Acute sinusitis, recurrence not specified, unspecified location J01.90 Assessments Encounter Date Diagnosis (ICD Code) Assessment Notes Treatment Notes Treatment Clinical Notes Section Notes 01/05/2024 Acute sinusitis, recurrence not specified, unspecified location (ICD-10 - J01.90) Plan Of Treatment Medication Medication Name Sig Start Date Stop Date Notes Fluticasone Propionate 50 MCG/ACT 1 spray in each nostril Nasally Once a day 01/05/2024 Cefdinir 300 MG 1 cap(s) Orally Two times a day; Duration: 7 days 01/05/2024 Next Appt Details Follow Up: via phone to repo rt progress, Reason: Provider Name:Mickey Riddle ry, 06/29/2025 02:00:00 PM, [address], [address], [place], [id number], Progress Notes * KELLY JEFFERS:1950 (75 yo F)Acc No.[id number]:01/05/2024 Progress Notes Patient: BERNICE GAYTAN Provider: Lenin Viera M.D. :1950 A ge:73 Y S ex:Female Date:01/05/2024 Address:[address], [place] , [id number] Subjective: * Chief Complaints: * 1 . Possible sinus infection and eye infection. * HPI: E NT/respiratory: 73 year old female presents with c/o facial pain/pressure P t complains of pressue in face and on top of head that has worsened over the last couple months. Pt states she was seen by opthalmology and retina specialist. Pt states she was told the symptoms are being cause by h er sinuses a nd she needs to see here PCP. * ROS: D ERMATOLOGY: no R yris. n o H angelia. G ASTROENTEROLOGY: no N ausea. n o V omiting. U ROLOGY: no D ifficulty urinating. n o B lood in urine. * Medical History: U terine Cancer, Bilateral Foot Bone Spurs, Tobacco use disorder, COPD, Osteoarthritis, low back pain, MRI 2018, Degenerative Disc Disease, Lumbar Disc Disease, Lumbar facet arthropathy, Hyperlipidemia, 50 pack year smoking history as of 2019, Abdominal Aortic Aneurysm, Dx 2019 (2.4 cm in diameter at that time), Vitamin D deficiency, Impaired fasting glucose. * Surgical History: P artial Hysterectomy , Cholecystectomy , cataracts . * Hospitalization/Major Diagno stic Procedure: S OA- [facility] ER 01/08/2020. * Family History: F ather: 78 yrs, bone cancer. M other: alive 90 yrs, bladder issues, diagnosed with Hypertension. 3 sister(s) . 2 son(s) , 5 daughter(s) . . Pt is raising two of her grandchildren. Sister with CAD. * Social History: C URRENT TOBACCO USE: Yes A re you a: c urrent smoker, H ow many cigarettes a day do you smoke? 1 1-20. C affeine: yes, frequency: daily. Home smoke detector use: yes. Alcohol: No. * Medications: T aking Valsartan 160 MG Tablet 1 tablet Orally Once a day , Taking Meloxicam 7.5 MG Tablet 1 tablet Orally Once a day , Taking Omeprazole 40 MG Capsule Delayed Release 1 cap(s) orally once a day , Taking Gabapentin 800 MG Tablet 1 tab(s) orally 3 times a day , Taking Atorvastatin Calcium 40 MG Tablet 1 tab(s) orally once a day , Medication List reviewed and reconciled with the patient * Allergies: P enicillin: passed out - Side Effects, HYDROcodone: makes sick - Side Effects. Objective: * Vitals: W t:169, Temp:98.4, BP:160/90, HR:99, Nurse:ashwini, Ht: 61, BMI:31.93. * Examination: E NT/Respiratory: General Appearance: N AD. N ose : nares patent, cloudy rhinorrhea. O ral cavity : erythema without exudate on pharynx. H eart : R RR, normal S1 S2. L ungs: c lear to auscultation bilaterally. Assessment: * Assessment: 1. A cute sinusitis, recurrence not specified, unspecified location - J01.90 (Primary) ? Plan: * Treatment: Value Reference Range w bc 8.3 3.5 - 10 * l ym 27.6% 15 - 50 * m id 6.4% 2 - 15 * g ran 66.0% 35 - 80 * r bc 4.19 3.5 - 5.5 * h gb 12.9 11.5 - 16.5 * h ct 39.4 35 - 55 * m cv 94.0 75 - 100 * m ch 30.9 25 - 35 * m chc 32.9 31 - 38 * p lat 303 100 - 400 * Dulce Maria Greene 01/05/2024 3:24:34 PM > , Provider reviewed results while patient in office. * Procedure Codes: G 2211 Complex e/[place], [address] CAPILLARY BLOOD DRAW, 67486 CBC WITH AUTO DIFF * Follow Up: v ia phone to report progress * Images: Billing Information: * Visit Code: 43307 Office Visit, Est Pt., Level 3. * Procedure Codes: G2211 Complex e/[place]. [address] CAPILLARY BLOOD DRAW. 29183 CBC WITH AUTO DIFF. * Electronic signature of Jeanie Viera MD on 02/20/2025 at 01:17 PM EDT Sign off status: Pending * Provider: Lenin Viera M.D. Date: 0 01/05/2024 Generated for Manas jaramillo/Inez/eTransmitting on: 0 02/20/2025 01:17 PM EDT History and Physical Notes * HPI (History of Present Illness) Category Sub-Category Detail Notes Category Not es ENT/respiratory facial pain/pressure Pt complain s of pressue in face and on top of head that has worsened over the last couple months. Pt states she was seen by opthalmology and retina specialist. Pt states she was told the symptoms are being cause by her sinuses and she needs to see here PCP Examination Category Sub-Category Detail Notes Category Not es ENT/Respiratory Oral cavity : erythema without exudate on pharynx Heart : RRR, normal S1 S2 Lungs: clear to auscultatio n bilaterally General Appearance: NAD Nose : nares patent, cloudy rhinorrhea
--- OUTSIDE RECORDS SUMMARY | 2024-03-03 06:15 | XMS_ITS ---
Author Organization [facility] Address [address] [facility] [address] [place] [id number] Care Team Providers Care Family Law Mediator Name Role Phone Mickey Viera Primary Care Provider [phone] Allergies Allergen (clinical drug ingredient) Drug/Non Drug Allergy documented on EMR Reaction Allergy Type Onset Date Status hydrocodone HYDROcodone makes sick Drug Allergy Active Penicillin passed out Drug Allergy Activ e Results Component Value Reference Range Notes Glucose (In-House) Reviewed date:03/06/2024 10:37:06 AM Interpretation:138 Performing Lab: Notes/Report: 138 blood glucose 138 74 - 106 mg/dL Glycohemoglobin A1c (in hous e) Reviewed date:03/06/2024 10:37:06 AM Interpretation:5.9 Performing Lab: Notes/Report: 5.9 glycohemoglobin 5.9% 5 - 6.5 % P-Comprehensive Metabolic Pa aydin (CMP) Reviewed date:03/06/2024 10:37:06 AM Interpretation:gluc 109 Performing Lab: Notes/Report: Test performed by [facility] [address] [place] [address] , [address], [place] [address] Juan R Mendez MD, [employer] Consultant CLIA: [id number] Sodium 141 135-145 mmol/L Potassium 4.6 3.5-5.3 mmol/L Chloride 105 97-108 mmol/L CO2 26 22-32 mmol/L Glucose 109 65-99 mg/dL BUN 11 8-23 mg/dL Creatinine 0.74 0.50-1.00 mg/dL Calcium 9.3 8.6-10.4 mg/dL eGFR by Creatinine 86 >59 mL/min/1.73m2 Protein 6.8 6.0-8.3 g/dL Albumin 3.8 3.5-5.3 g/dL Alkaline Phosphatase 93 35-121 IU/L ALT (SGPT) 15 <5-47 IU/L AST (SGOT) 18 <5-40 IU/L Bilirubin, Total 0.6 <0.2-1.2 mg/dL A/G Ratio 1.3 1.1-2.5 P-Lipid Panel Reviewed date:03/06/2024 10:37:06 AM Interpretation:non-hdl 135 Performing Lab: Notes/Report: Test performed by [facility] [address] [place] [address] , [address], [place] [address] Juan R Mendez MD, [employer] Consultant CLIA: [id number] Cholesterol 176 <200 mg/dL Triglycerides 96 <150 mg/dL HDL Cholesterol 41 >39 mg/dL Cholesterol / HDL Ratio 4.29 0.00-4.44 Ratio Non-HDL Cholesterol 135 <130 mg/dL LDL Cholesterol (Calculation) 116 <130 mg/dL LDL Cholesterol Levels* Less than 100 mg/dL Optimal 100 to 129 mg/dL Near Optimal/ Above Optimal 130 to 159 mg/dL Borderline High 160 to 189 mg/dL High 190 mg/dL and above Very High * Categories as recommended by the 2004 ATPIII guidelines LDL/HDL Ratio 2.8 <3.3 Ratio LDL Cholesterol Patient History Test Date: 10/29/2023 LDL Results: 147 Units: mg/dL % Change: - Test Date: 03/03/2024 LDL Results: 116 Units: mg/dL % Change: -21% P-Vitamin D 25-Hydroxy Reviewed date:03/06/2024 10:37:06 AM Interpretation:48.9 Performing Lab: Notes/Report: Test performed by [facility] [address] [place] [address] , [facility], [place] [address] Juan R Mendez MD, [employer] Consultant CLIA: [id number] Vitamin D 25-Hydroxy 48.9 30.0-100.0 ng/mL Interpretation of Vitamin D 25 OH: < 20 ng/mL - Deficiency 20 - 29 ng/mL - Insufficiency 30 - 100 ng/mL - Sufficiency > 100 ng/mL - Super-therapeutic- toxicity may occur above this level. Clinical correlation required. REASON FOR VISIT 3 months Medications Medication SIG (Take, Route, Frequency, Duration) Notes Start Date End Date Status Gabapentin 800 MG 1 tab(s) orally 3 ti mes a day; Duration: 30 days 12/06/2023 Active Omeprazole 40 MG 1 cap(s) orally once a day Active Fluticasone Propionate 50 MCG/ACT 1 spray in each nostril Nasally Once a day 01/05/2024 Active Atorvastatin Calcium 40 MG 1 tab(s) oral ly once a day; Duration: 90 days Active Cetirizine HCl 10 MG 1 tablet Orally Onc e a day; Duration: 30 day(s) 03/03/2024 Active Meloxicam 7.5 MG 1 tablet Orally Once a day; Duration: 30 day(s) 11/26/2023 Active Valsartan 160 MG 1 tablet Orally Once a day; Duration: 30 days 10/29/2023 Active Montelukast Sodium 10 MG 1 tablet Orally Once a day; Duration: 30 day(s) 03/03/2024 Active Social History Tobacco Use: Social History Observation Description Date Details (start date - stop date) Current Smoker NA - NA CURRENT TOBACCO USE: Question Answer Notes Are you a: current smoker How many cigarettes a day do you smoke? 05-03 Problems Problem Type SNOMED Code ICD Code Onset Dates Problem Status W/U Status Risk Notes Problem Allergic rhinitis (55723642) Allergic rhinitis, unspecified seasonality, unspecified trigger (J30.9) Active confirmed Problem Impaired fasting glycaemia (074198193) IFG (impaired fasting glucose) (R73.01) Active confirmed Vital Signs Blood pressure systolic 130 mm Hg 03/03/20 24 Blood pressure diastolic 70 mm Hg 024 Heart Rate 81 /min 03/03/2024 Height 61 in 03/03/2024 Weight 166.8 lbs 03/03/2024 BMI 31.51 kg/m2 03/03/2024 Encounters Encounter [facility] Date [facility] [address] [id number] 03/03/2024 Mickey Viera Dyslipidemia E78.5 ; Vitamin D deficiency E55.9 ; Essential hypertension I10 ; Allergic rhinitis, unspecified seasonality, unspecified trigger J30.9 and IFG (impaired fasting glucose) R73.01 Assessments Encounter Date Diagnosis (ICD Code) Assessment Notes Treatment Notes Treatment Clinical Notes Section Notes 03/03/2024 Dyslipidemia (ICD-10 - E78.5) 03/03/2024 Vitamin D deficiency (ICD-10 - E55.9) 03/03/2024 Essential hypertension (ICD-10 - I10) 03/03/2024 Allergic rhinitis, unspecified seasonality, unspecified trigger (ICD-10 - J30.9) 03/03/2024 IFG (impaired fasting glucose) (ICD-10 - R73.01) Plan Of Treatment Medication Medication Name Sig Start Date Stop Date Notes Cetirizine HCl 10 MG 1 tablet Orally Onc e a day; Duration: 30 day(s) 03/03/2024 Montelukast Sodium 10 MG 1 tablet Orally Once a day; Duration: 30 day(s) 03/03/2024 Next Appt Details Follow Up: 4 Weeks, Reason: Provider Name:Mickey garvey, 06/29/2025 02:00:00 PM, [address], [address], [place], [place], [phone], Progress Notes * KELLY JEFFERS:1950 (75 yo F)Acc No.[id number]:03/03/2024 Progress Notes Patient: BERNICE GAYTAN Provider: Lenin Viera M.D. :1950 A ge:74 Y S ex:Female Date:03/03/2024 Address: [address], [id number] Subjective: * Chief Complaints: * 1 . 3 months. * HPI: C ardiology: 74 year old female presents with c/o Fatigue P t sts she still feels fatigue. Pt sts she went to her library specialist and they found no problems, but sts that she still feels pressure in her head. Pt sts she has been taking her Fluticasone and sts it has not helped at all. c/o Blood Pressure Elevated P t is here today for a 3 month f/u on BP. Pt sts she has not been checking her BP at home. D ermatology: c/o cyst P t has a spot on top of her right hand that she sts came back, a nd sts that it did come back cancerous. She sts they are going to cut it out on Mar 13. H PI: c/o Patient is here today for P t needs lab work. * ROS: D ERMATOLOGY: no R yris. [...] * Hospitalization/Major Diagno stic Procedure: S OA- [facility] ER 01/08/2020. * Family History: F ather: [...] 1 tab(s) orally once a day , Taking Fluticasone Propionate 50 MCG/ACT Suspension 1 spray in each nostril Nasally Once a day , Medication List reviewed and reconciled with the patient * Allergies: P enicillin: passed out - Side Effects, HYDROcodone: makes sick - Side Effects. Objective: * Vitals: W t:166.8, Temp:98.5, BP:130/70, HR:81, O2 Sat:93% on RA, Nurse:ABDI, Ht: 61, BMI:31.51. * Examination: C ardiology: General Appearance: p leasant, NAD. H eart sounds: R RR, normal S1, S2. L ungs: c lear, no rales or wheezes. Assessment: * Assessment: 1. D yslipidemia - E78.5 (Primary) 2 . V itamin D deficiency - E55.9 ? 3 . E ssential hypertension - I10 4 . A llergic rhinitis, unspecified seasonality, unspecified trigger - J30.9 5 . I FG (impaired fasting glucose) - R73.01 Plan: * Treatment: Value Reference Range A /G Ratio 1.3 1.1-2.5 - * A lbumin 3.8 3.5-5.3 - g/dL * A lkaline Phosphatase 93 35-121 - IU/L * A LT (SGPT) 15 <5-47 - IU/L * A ST (SGOT) 18 <5-40 - IU/L * B ilirubin, Total 0.6 <0.2-1.2 - mg/dL * B UN 11 8-23 - mg/dL * C alcium 9.3 8.6-10.4 - mg/dL * C hloride 105 97-108 - mmol/L * C O2 26 22-32 - mmol/L * C reatinine 0.74 0.50-1.00 - mg/dL * G lucose 109 H 65-99 - mg/dL * P otassium 4.6 3.5-5.3 - mmol/L * S odium 141 135-145 - mmol/L * P rotein 6.8 6.0-8.3 - g/dL * e GFR by Creatinine 86 >59 - mL/min/1.73m2 * Mai Vance 03/06/2024 10:36 :58 AM >See phone encounter ?LAB: P-Lipid Panel (Collection Date & Time - 03/03/2024 09:50 AM)?non-hdl 135* Value Reference Range C holesterol / HDL Ratio 4.29 0.00-4.44 - Ratio * C holesterol 176 <200 - mg/dL * H DL Cholesterol 41 >39 - mg/dL * L DL Cholesterol (Calculation) 116 <130 - mg/d L * L DL/HDL Ratio 2.8 <3.3 - Ratio * N on-HDL Cholesterol 135 H <130 - mg/dL * T riglycerides 96 <150 - mg/dL * Mai Vance 03/06/2024 10:36 :58 AM >See phone encounter 2.?Vitamin D deficiency?LAB: P-Vitamin D 25-Hydroxy (Collection Date & Time - 03/03/2024 09:50 AM)? 48.9* Value Reference Range V itamin D 25-Hydroxy 48.9 30.0-100.0 - ng/mL * Mai Vance 03/06/2024 10:36 :58 AM >See phone encounter 3.?Essential hypertension?LAB: P-Comprehensive Metabolic Panel (CMP) (Collection Date & Time - 03/03/2024 09:50 AM)?gluc 109* Value Reference Range A /G Ratio 1.3 1.1-2.5 - * A lbumin 3.8 3.5-5.3 - g/dL * A lkaline Phosphatase 93 35-121 - IU/L * A LT (SGPT) 15 <5-47 - IU/L * A ST (SGOT) 18 <5-40 - IU/L * B ilirubin, Total 0.6 <0.2-1.2 - mg/dL * B UN 11 8-23 - mg/dL * C alcium 9.3 8.6-10.4 - mg/dL * C hloride 105 97-108 - mmol/L * C O2 26 22-32 - mmol/L * C reatinine 0.74 0.50-1.00 - mg/dL * G lucose 109 H 65-99 - mg/dL * P otassium 4.6 3.5-5.3 - mmol/L * S odium 141 135-145 - mmol/L * P rotein 6.8 6.0-8.3 - g/dL * e GFR by Creatinine 86 >59 - mL/min/1.73m2 * Mai Vance 03/06/2024 10:36 :58 AM >See phone encounter 4.?Allergic rhinitis, unspecified seasonality, unspecified trigger? Start Cetirizine HCl Tablet, 10 MG, 1 tablet, Orally, Once a day, 30 day(s), 30 Tablet, Refills 0; Start Montelukast Sodium Tablet, 10 MG, 1 tablet, Orally, Once a day, 30 day(s), 30 Tablet, Refills 0.??5.?IFG (impaired fasting glucose)?LAB: Glucose (In-House) (Collection Date & Time - 03/03/2024)?138* Value Reference Range b lood glucose 138 74 - 106 mg/dL * Dulce Maria Greene 03/03/2024 11:00:0 6 AM > Mai Vance 03/06/2024 10:36:58 AM >See phone encounter ?LAB: Glycohemoglobin A1c (in house) (Collection Date & Time - 03/03/2024)? 5.9* Value Reference Range g lycohemoglobin 5.9% 5 - 6.5 % * Dulce Maria Greene 03/03/2024 11:00:2 7 AM > Mai Vance 03/06/2024 10:36:58 AM >See phone encounter * Procedure Codes: G 2211 Complex e/[place], [address] GLUCOSE TEST, 26551 GLYCATED HEMOGLOBIN TEST, Modifiers: QW * Follow Up: 4 Weeks * Images: Billing Information: * Visit Code: 71767 Office Visit, Est Pt., Level 4. * Procedure Codes: G2211 Complex e/[place]. [address] GLUCOSE TEST. 45679 GLYCATED HEMOGLOBIN TEST. Modifiers: QW * Electronic signature of Jeanie Viera MD on 02/20/2025 at 01:18 PM EDT Sign off status: Pending * Provider: Lenin Viera M.D. Date: 0 03/03/2024 Generated for Manas jaramillo/Inez/eTransmitting on: 0 02/20/2025 01:18 PM EDT History and Physical Notes * HPI (History of Present Illness) Category Sub-Category Detail Notes Category Not es Dermatology cyst Pt has a spot on top of her right hand that she sts came back, and sts that it did come back cancerous. She sts they are going to cut it out on Mar 13 Cardiology Fatigue Pt sts she still feels fatigue. Pt sts she went to her library specialist and they found no problems, but sts that she still feels pressure in her head. Pt sts she has been taking her Fluticasone and sts it has not helped at all Blood Pressure Elevated Pt is here today for a 3 month f/u on BP. Pt sts she has not been checking her BP at home HPI Patient is here today for Pt needs lab wo rk Examination Category Sub-Category Detail Notes Category Not es Cardiology Lungs: clear, no rales or wheezes Heart sounds: RRR, normal S1, S2 General Appearance: pleasant, NAD
--- OUTSIDE RECORDS SUMMARY | 2024-04-06 07:15 | XMS_ITS ---
Author Organization [facility] Address [address] [place] [id number] Care Team Providers Care Mill Tender Name Role Phone Mickey Viera Primary Care Provider Allergies Allergen (clinical drug ingredient) Drug/Non Drug Allergy documented on EMR Reaction Allergy Type Onset Date Status hydrocodone HYDROcodone makes sick Drug Allergy Active Penicillin passed out Drug Allergy Activ e Results Component Value Reference Range Notes MRI : Brain with and without contrast Reviewed date:10/16/2024 12:31:09 PM Interpretation: Performing Lab: Notes/Report: REASON FOR VISIT 4 week follow up Medications Medication SIG (Take, Route, Frequency, Duration) Notes Start Date End Date Status Montelukast Sodium 10 MG 1 tablet Orally Once a day; Duration: 30 day(s) 03/03/2024 Active Gabapentin 800 MG 1 tab(s) orally 3 ti mes a day; Duration: 30 days 12/06/2023 Active Omeprazole 40 MG 1 cap(s) orally once a day Active Meloxicam 7.5 MG 1 tablet Orally Once a day; Duration: 30 day(s) 11/26/2023 Active Valsartan 160 MG 1 tablet Orally Once a day; Duration: 30 days 10/29/2023 Active Cetirizine HCl 10 MG 1 tablet Orally Onc e a day; Duration: 30 day(s) 03/03/2024 Active Fluticasone Propionate 50 MCG/ACT 1 spray in each nostril Nasally Once a day 01/05/2024 Active Atorvastatin Calcium 40 MG 1 tab(s) oral ly once a day; Duration: 90 days Active Social History Tobacco Use: Social History Observation Description Date Details (start date - stop date) Current Smoker NA - NA CURRENT TOBACCO USE: Question Answer Notes Are you a: current smoker How many cigarettes a day do you smoke? - Vital Signs Blood pressure systolic 168 mm Hg 04/06/20 Blood pressure diastolic 88 mm Hg 024 Heart Rate 97 /min 04/06/2024 Height 61 in 04/06/2024 Weight 170.2 lbs 04/06/2024 BMI 32.16 kg/m2 04/06/2024 Encounters Encounter Location Date Provider Diagnosis [facility] [address] [facility] [address] [place] [id number] 04/06/2024 Mickey Viera Daily headache R51.9 and Blurry vision H53.8 Assessments Encounter Date Diagnosis (ICD Code) Assessment Notes Treatment Notes Treatment Clinical Notes Section Notes 04/06/2024 Daily headache (ICD-10 - R51.9) 04/06/2024 Blurry vision (ICD-10 - H53.8) Plan Of Treatment Next Appt Details Follow Up: via phone to repo rt test results, Reason: Provider Name:Mickey Riddle ry, 06/29/2025 02:00:00 PM, [address] [facility] [address], [address], [place], [phone], Progress Notes * JOHN JEFFERSNATB:1950 (75 yo F)Acc No.[id number]:04/06/2024 Progress Notes Patient: BERNICE GAYTAN Provider: Lenin Viera M.D. :1950 A ge:74 Y S ex:Female Date:04/06/2024 Address: [address], [id number] Subjective: * Chief Complaints: * 1 . 4 week follow up. * HPI: N eurology: 74 year old female presents with c/o Head Pressure P t complains of ongoing pressure in the top of her head. States that she has been taking Montelukast and Cetirizine daily as rx'd and has not had any relief. Pt states she cannot drive and she feels like there is something going on inside of her head but she does not know what it is. Pt states she has seen net application support specialist and was told that it is not her eyes. Pt states this has been going on for a while . * ROS: D ERMATOLOGY: no R yris. [...] * Hospitalization/Major Diagno stic Procedure: S OA- [facility] ER 01/08/2020. * Family History: F ather: [...] each nostril Nasally Once a day , Taking Cetirizine HCl 10 MG Tablet 1 tablet Orally Once a day , Taking Montelukast Sodium 10 MG Tablet 1 tablet Orally Once a day , Medication List reviewed and reconciled with the patient * Allergies: P enicillin: passed out - Side Effects, HYDROcodone: makes sick - Side Effects. Objective: * Vitals: W t:170.2, Temp:98.1, BP:168/88, HR:97, Nurse:kk, Ht: 61, BMI:32.16. * Examination: G eneral Examination: General Appearance: N AD. Assessment: * Assessment: 1. D aily headache - R51.9 (Primary) 2 . B lurry vision - H53.8 ? Plan: * Treatment: 2.?Blurry vision?Imaging: MRI : Brain with and without contrast (Performed Date - 04/18/2024)* Ondina Brito 04/06/2024 11: 23:48 AM > pt cannot do 04/13Helen Garcia 04/06/2024 11:41:30 AM > no auth required; CPT code 59079; faxed to [facility] Mai Lee 10/16/2024 12:31:00 PM >see 04/19/24 TE * Procedure Codes: G 2211 Complex e/m visit add on * Follow Up: v ia phone to report test results * Images: Billing Information: * Visit Code: 17007 Office Visit, Est Pt., Level 3. * Procedure Codes: G2211 Complex e/m visit add on. * Electronic signature of Jeanie Viera MD on 02/20/2025 at 01:18 PM EDT Sign off status: Pending * Provider: Lenin Viera M.D. Date: Generated for Manas jaramillo/Inez/eTransmitting on: 0 02/20/2025 01:18 PM EDT History and Physical Notes * HPI (History of Present Illness) Category Sub-Category Detail Notes Category Not es Neurology Head Pressure Pt complains of ongoing pressure in the top of her head. States that she has been taking Montelukast and Cetirizine daily as rx'd and has not had any relief. Pt states she cannot drive and she feels like there is something going on inside of her head but she does not know what it is. Pt states she has seen net application support specialist and was told that it is not her eyes. Pt states this has been going on for a while Examination Category Sub-Category Detail Notes Category Not es General Examination General Appearance: NAD
--- OUTSIDE RECORDS SUMMARY | 2024-12-25 10:00 | XMS_ITS ---
Author Organization [facility] Address [address] [facility] [address] [place] [id number] Care Team Providers Care Flour Inspector Name Role Phone Mickey Veira Primary Care Provider Allergies Allergen (clinical drug ingredient) Drug/Non Drug Allergy documented on EMR Reaction Allergy Type Onset Date Status hydrocodone HYDROcodone makes sick Drug Allergy Active Penicillin passed out Drug Allergy Activ e Results Component Value Reference Range Notes CBC Venipuncture (in house) Reviewed date:12/27/2024 11:14:56 AM Interpretation:Normal Performing Lab: Notes/Report: Normal wbc 8.0 3.5 - 10 lymph 28.5 15 - 50 mid 7.7 2 - 15 gran 63.8 35 - 80 rbc 4.44 3.5 - 5.5 hgb 13.9 11.5 - 16.5 hct 41.2 35 - 55 mcv 92.9 75 - 100 mch 31.4 25 - 35 mchc 33.8 31 - 38 platlet 393 100 - 400 P-Comprehensive Metabolic Pa aydin (CMP) Reviewed date:12/27/2024 11:14:56 AM Interpretation:gluc 104 Performing Lab: Notes/Report: Test performed by [employer], [place] [facility] , [address], [place] [address] Juan R Mendez MD, [employer] CLIA: [id number] Sodium 139 135-145 mmol/L Potassium 4.6 3.5-5.3 mmol/L Chloride 103 97-108 mmol/L CO2 23 20-32 mmol/L Glucose 104 65-99 mg/dL BUN 14 8-23 mg/dL Creatinine 0.82 0.50-1.00 mg/dL Calcium 10.0 8.6-10.4 mg/dL eGFR by Creatinine 76 >59 mL/min/1.73m2 Protein 7.6 6.0-8.3 g/dL Albumin 4.4 3.5-5.3 g/dL Alkaline Phosphatase 97 35-121 IU/L ALT (SGPT) 11 <5-47 IU/L AST (SGOT) 17 <5-40 IU/L Bilirubin, Total 0.4 <0.2-1.2 mg/dL A/G Ratio 1.4 1.1-2.5 P-Lipid Panel Reviewed date:12/27/2024 11:14:56 AM Interpretation:chol 272, chol/hdl 6.04, non-hdl 227, ldl 201,ldl/hdl 4.5 Performing Lab: Notes/Report: Test performed by [employer] [address] [place] [address] , [address], [place] [address] Juan R Mendez MD, [employer]isher [employer] CLIA: [id number] Cholesterol 272 <200 mg/dL Triglycerides 131 <150 mg/dL HDL Cholesterol 45 >39 mg/dL Cholesterol / HDL Ratio 6.04 0.00-4.44 Ratio Non-HDL Cholesterol 227 <130 mg/dL LDL Cholesterol (Calculation) 201 <130 mg/dL LDL Cholesterol Levels* Less than 100 mg/dL Optimal 100 to 129 mg/dL Near Optimal/ Above Optimal 130 to 159 mg/dL Borderline High 160 to 189 mg/dL High 190 mg/dL and above Very High * Categories as recommended by the 2004 ATPIII guidelines LDL/HDL Ratio 4.5 <3.3 Ratio LDL Cholesterol Patient History Test Date: 10/29/2023 LDL Results: 147 Units: mg/dL % Change: - Test Date: 03/03/2024 LDL Results: 116 Units: mg/dL % Change: -21% Test Date: 12/25/2024 LDL Results: 201 Units: mg/dL % Change: +73% P-TSH reflex to FT4 Reviewed date:12/27/2024 11:14:56 AM Interpretation:Normal Performing Lab: Notes/Report: Test performed by [employer] [address] [place] [address] , [place] [address] Juan R Mendez MD, [employer] CLIA: [id number] TSH reflex to FT4 1.42 0.43-5.25 mU/L P-Microalbumin/Creatinine, R andom Urine Sample Reviewed date:12/27/2024 11:14:56 AM Interpretation:Normal Performing Lab: Notes/Report: Test performed by [employer] [address] [place] [address] , [address], [place] [address] Juan R Mendez MD, [employer] CLIA: [id number] Albumin/Creatinine Ratio, Urine 5 0-30 ug/m g Microalbumin, Urine, Random 0.6 Creatinine, Urine 124.9 P-Vitamin D 25-Hydroxy Reviewed date:12/27/2024 11:14:56 AM Interpretation:40.7 Performing Lab: Notes/Report: Test performed by [employer], [place] [address] [place] [address] , [address], [place] [address] Juan R Mendez MD, [employer]isher [employer] CLIA: [id number] Vitamin D 25-Hydroxy 40.7 30.0-100.0 ng/mL Interpretation of Vitamin D 25 OH: < 20 ng/mL - Deficiency 20 - 29 ng/mL - Insufficiency 30 - 100 ng/mL - Sufficiency > 100 ng/mL - Super-therapeutic- toxicity may occur above this level. Clinical correlation required. Reason For Referral Diagnosis 1 Sinus pressure (J34. 89) Referral Organization [facility] Referring Provider First Name Mickey Referring Provider Last Name Maximiliano Referring Provider Speciality Family [facility] aureice Referred Provider Machelle Greene Referred Provider Specialty ENT General Notes Helen Garcia 2024 02:42:43 PM > faxed to [facility] Radha BARNES Brynn 12/28/2024 11:33:33 AM > spoke with Cristina; referral received Referral Priority Routine REASON FOR VISIT Check up Medications Medication SIG (Take, Route, Frequency, Duration) Notes Start Date End Date Status Omeprazole 40 mg 1 cap(s) Orally Once a day; Duration: 90 days Active Valsartan 160 MG 1 tablet Orally Once a day; Duration: 30 days Active Gabapentin 800 MG 1 tab(s) orally 3 ti mes a day; Duration: 30 days 06/28/2024 Active Atorvastatin Calcium 40 MG 1 tab(s) oral ly once a day; Duration: 90 days Active Social History Tobacco Use: Social History Observation Description Date Details (start date - stop date) Current Smoker NA - NA CURRENT TOBACCO USE: Question Answer Notes Are you a: current smoker How many cigarettes a day do you smoke? 11-20 Problems Problem Type SNOMED Code ICD Code Onset Dates Problem Status W/U Status Risk Notes Problem Body mass index 30+ - obesity (094896668) BMI 30.0-30.9,a dult (Z68.30) Active confirmed Vital Signs Blood pressure systolic 140 mm Hg 12/26/19 25 Blood pressure diastolic 88 mm Hg 025 Heart Rate 95 /min 12/25/2024 Height 61 in 12/25/2024 Weight 161 lbs 12/25/2024 BMI 30.42 kg/m2 12/25/2024 Encounters Encounter Location Date Provider Diagnosis [facility] [address] [place] [id number] 12/25/2024 Mickey Viera Dyslipidemia E78.5 ; Essential hypertension I10 ; GERD (gastroesophageal reflux disease) K21.9 ; Vitamin D deficiency E55.9 ; Sinus pressure J34.89 ; Screening for lung cancer Z12.2 ; Personal history of nicotine dependence Z87.891 ; FPC use of drug Z79.899 ; Chronic obstructive pulmonary disease, unspecified COPD type J44.9 and BMI 30.0-30.9,adult Z68.30 Assessments Encounter Date Diagnosis (ICD Code) Assessment Notes Treatment Notes Treatment Clinical Notes Section Notes 12/25/2024 Dyslipidemia (ICD-10 - E78.5) 12/25/2024 Essential hypertension (ICD-10 - I10) 12/25/2024 GERD (gastroesophageal reflux disease) (ICD-10 - K21.9) 12/25/2024 Vitamin D deficiency (ICD-10 - E55.9) 12/25/2024 Sinus pressure (ICD-10 - J34.89) 12/25/2024 Screening for lung cancer (ICD-10 - Z12.2) 12/25/2024 Personal history of nicotine dependence (ICD-10 - Z87.891) 12/25/2024 buttermaker helper use of drug (ICD-10 - Z79.899) 12/25/2024 Chronic obstructive pulmonary disease, unspecified COPD type (ICD-10 - J44.9) 12/25/2024 BMI 30.0-30.9,adult (ICD-10 - Z68.30) Plan Of Treatment Medication Medication Name Sig Start Date Stop Date Notes Omeprazole 40 mg 1 cap(s) Orally Once a day; Duration: 90 days Atorvastatin Calcium 40 MG 1 tab(s) oral ly once a day; Duration: 90 days Pending Test Test Name Order Date CT Scan : Chest, low dose 12/25/2024 Referrals Referral Date Details 12/25/2024 12/25/2024, Machelle Gerene Next Appt Details Follow Up: 6 Months, Reason: Provider Name:Mickey garvey, 06/29/2025 02:00:00 PM, [address], [address], [place], [place], [id number], Progress Notes * KELLY JEFFERS:1950 (75 yo F)Acc No.[id number]:12/25/2024 Progress Notes Patient: BERNICE GAYTAN Provider: Lenin Viera M.D. :1950 A ge:74 Y S ex:Female Date:12/25/2024 Address: [address], [place] , [id number] Subjective: * Chief Complaints: * 1 . Check up. * HPI: C ardiology: 74 year old female presents with c/o Blood Pressure Elevated?Pt here for check- up on hypertension. Pt states she is doing well and does not have any concerns.? c/o Hyperlipidemia P t is fasting today. * ROS: D ERMATOLOGY: no R yris. n o H angelia. E NT: Positive for c onitnued sinus pressure. She has tried numerous medications and had an MRI of the brain. G ASTROENTEROLOGY: no N ausea. n o [...] History: P artial Hysterectomy , Cholecystectomy , Cataracts . * Hospitalization/Major Diagno stic Procedure: S OA- [facility] ER 01/08/2020. * Family History: F ather: 78 yrs, bone cancer. M other: alive 91 yrs, bladder issues, diagnosed with Hypertension. 3 [...] yes. Alcohol: No. * Medications: T aking Atorvastatin Calcium 40 MG Tablet 1 tab(s) orally once a day , Taking Valsartan 160 MG Tablet 1 tablet Orally Once a day , Taking Gabapentin 800 MG Tablet 1 tab(s) orally 3 times a day , Taking Omeprazole 40 mg Capsule Delayed Release 1 cap(s) Orally Once a day , Discontinued Meloxicam 7.5 MG Tablet 1 tablet Orally Once a day , Discontinued Fluticasone Propionate 50 MCG/ACT Suspension 1 spray in each nostril Nasally Once a day , Discontinued Cetirizine HCl 10 MG Tablet 1 tablet Orally Once a day , Discontinued Montelukast Sodium 10 MG Tablet 1 tablet Orally Once a day , Medication List reviewed and reconciled with the patient * Allergies: P enicillin: passed out - Side Effects, HYDROcodone: makes sick - Side Effects. Objective: * Vitals: W t: 161, Temp: 98.1, BP: 140/88, HR: 95, Nurse: ashwini, Ht: 61, BMI:30.42. * Examination: G eneral Examination: General Appearance: N AD. H EENT: s clera and conjunctiva clear, PERRLA, TM's normal, translucent. O ral cavity: n o lesions, mucosa moist and WNL, no erythema. N beatriz: s upple, no lymphadenopathy. H eart: R SR. L ungs: clear to auscultation. S kin: n ormal, no rash. P eripheral pulses: n ormal (2+) bilaterally. E xtremities: n o leg edema. Assessment: * Assessment: 1. D yslipidemia - E78.5 (Primary) 2 . E ssential hypertension - I10 ? 3 . G ERD (gastroesophageal reflux disease) - K21.9 4 . V itamin D deficiency - E55.9 5 . S inus pressure - J34.89 6 . S creening for lung cancer - Z12.2 7 . P ersonal history of nicotine dependence - Z87.891 8 . L tiffany term use of drug - Z79.899 9 . C hronic obstructive pulmonary disease, unspecified COPD type - J44.9 1 0. B CO 30.0-30.9,adult - Z68.30 Plan: * Treatment: Value Reference Range A /G Ratio 1.4 1.1-2.5 - * A lbumin 4.4 3.5-5.3 - g/dL * A lkaline Phosphatase 97 35-121 - IU/L * A LT (SGPT) 11 <5-47 - IU/L * A ST (SGOT) 17 <5-40 - IU/L * B ilirubin, Total 0.4 <0.2-1.2 - mg/dL * B UN 14 8-23 - mg/dL * C alcium 10.0 8.6-10.4 - mg/dL * C hloride 103 97-108 - mmol/L * C O2 23 20-32 - mmol/L * C reatinine 0.82 0.50-1.00 - mg/dL * G lucose 104 H 65-99 - mg/dL * P otassium 4.6 3.5-5.3 - mmol/L * S odium 139 135-145 - mmol/L * P rotein 7.6 6.0-8.3 - g/dL * e GFR by Creatinine 76 >59 - mL/min/1.73m2 * Mai Vance 12/27/2024 11:1 4:45 AM EDT > See phone encounter ?LAB: P-Lipid Panel (Collection Date & Time - 12/25/2024 01:24 PM)?chol 272, chol/hdl 6.04, non-hdl 227, ldl 201,ldl/hdl 4.5* Value Reference Range C holesterol / HDL Ratio 6.04 H 0.00-4.44 - Ratio * C holesterol 272 H <200 - mg/dL * H DL Cholesterol 45 >39 - mg/dL * L DL Cholesterol (Calculation) 201 H <130 - mg/d L * L DL/HDL Ratio 4.5 H <3.3 - Ratio * N on-HDL Cholesterol 227 H <130 - mg/dL * T riglycerides 131 <150 - mg/dL * Mai Vance 12/27/2024 11:1 4:45 AM EDT > See phone encounter ?LAB: P-TSH reflex to FT4 (Collection Date & Time - 12/25/2024 01:24 PM)? Normal* Value Reference Range T SH reflex to FT4 1.42 0.43-5.25 - mU/L * RajivMai 12/27/2024 11:1 4:45 AM EDT > See phone encounter 2.?Essential hypertension?LAB: P-Comprehensive Metabolic Panel (CMP) (Collection Date & Time - 12/25/2024 01:24 PM)?gluc 104* Value Reference Range A /G Ratio 1.4 1.1-2.5 - * A lbumin 4.4 3.5-5.3 - g/dL * A lkaline Phosphatase 97 35-121 - IU/L * A LT (SGPT) 11 <5-47 - IU/L * A ST (SGOT) 17 <5-40 - IU/L * B ilirubin, Total 0.4 <0.2-1.2 - mg/dL * B UN 14 8-23 - mg/dL * C alcium 10.0 8.6-10.4 - mg/dL * C hloride 103 97-108 - mmol/L * C O2 23 20-32 - mmol/L * C reatinine 0.82 0.50-1.00 - mg/dL * G lucose 104 H 65-99 - mg/dL * P otassium 4.6 3.5-5.3 - mmol/L * S odium 139 135-145 - mmol/L * P rotein 7.6 6.0-8.3 - g/dL * e GFR by Creatinine 76 >59 - mL/min/1.73m2 * Mai Vance 12/27/2024 11:1 4:45 AM EDT > See phone encounter ?LAB: P-Microalbumin/Creatinine, Random Urine Sample (Collection Date & Time - 12/25/2024 01:24 PM)?Normal* Value Reference Range A lbumin/Creatinine Ratio, Urine 5 0-30 - ug /mg * C reatinine, Urine 124.9 - mg/dL * M icroalbumin, Urine, Random 0.6 - mg/dL * Mai Vance 12/27/2024 11:1 4:45 AM EDT > See phone encounter 3.?GERD (gastroesophageal reflux disease)? Refill Omeprazole Capsule Delayed Release, 40 mg, 1 cap(s), Orally, Once a day, 90 days, 90, Refills 1.??4.?Vitamin D deficiency?LAB: P-Vitamin D 25-Hydroxy (Collection Date & Time - 12/25/2024 01:24 PM)? 40.7* Value Reference Range V itamin D 25-Hydroxy 40.7 30.0-100.0 - ng/mL * Mai Vance 12/27/2024 11:1 4:45 AM EDT > See phone encounter 5.?Sinus pressure? Referral To:Machelle Greene??ENT ?Reason: 6.?Screening for lung cancer?Imaging: CT Scan : Chest, low dose* Helen Garcia 12/25/2024 02:4 1:24 PM EDT > no auth required; CPT code 88068 7.?Personal history of nicotine dependence?Imaging: CT Scan : Chest, low dose* Helen Garcia 12/25/2024 02:4 1:24 PM EDT > no auth required; CPT code 11343 8.?FPC use of drug?LAB: CBC Venipuncture (in house) (Collection Date & Time - 12/25/2024)? Normal* Value Reference Range w bc 8.0 3.5 - 10 * l ymph 28.5 15 - 50 * m id 7.7 2 - 15 * g ran 63.8 35 - 80 * r bc 4.44 3.5 - 5.5 * h gb 13.9 11.5 - 16.5 * h ct 41.2 35 - 55 * m cv 92.9 75 - 100 * m ch 31.4 25 - 35 * m chc 33.8 31 - 38 * p latlet 393 100 - 400 * Yanet Kwon 12/25/2024 0 4:14:47 PM EDT > Mai Vance 12/27/2024 11:14:45 AM EDT > See phone encounter * Procedure Codes: G 2211 Complex e/[place], [address] CBC WITH AUTO DIFF, G8950 PREHTN/HTN BP DOC INDCD F/U DOC, G8753 MOST RECENT SYSTOLIC BP >= 140MM HG, G8754 MOST RECENT DIASTOLIC BP < 90MM HG * Follow Up: 6 Months * Images: Billing Information: * Visit Code: 00361 Office Visit, Est Pt., Level 4. * Procedure Codes: G2211 Complex e/[place]. [address] CBC WITH AUTO DIFF. G8950 PREHTN/HTN BP DOC INDCD F/U DOC. G8753 MOST RECENT SYSTOLIC BP >= 140MM HG. G8754 MOST RECENT DIASTOLIC BP < 90MM HG. * Electronic signature of Jeanie Viera MD on 02/20/2025 at 01:17 PM EDT Sign off status: Pending * Provider: Lenin Viera M.D. Date: 0 12/25/2024 Generated for Ebonyi ng/Faarong/eTransmitting on: 0 02/20/2025 01:17 PM EDT History and Physical Notes * HPI (History of Present Illness) Category Sub-Category Detail Notes Category Not es Cardiology Blood Pressure Elevated Pt here for check-up on hypertension. Pt states she is doing well and does not have any concerns Hyperlipidemia Pt is fasting today Examination Category Sub-Category Detail Notes Category Not es General Examination HEENT: sclera and c onjunctiva clear, PERRLA, TM's normal, translucent Heart: RSR Lungs: clear to auscultatio n Extremities: no leg edema General Appearance: NAD Skin: normal, no rash Neck: supple, no lymphaden opathy Oral cavity: no lesions, mucosa m oist and WNL, no erythema Peripheral pulses: normal (2+) bilatera lly Consultation Request Notes Referral Date Referring Provider Referred Provider Not es 12/25/2024 Mickey Viera Leigh Ann
--- OUTSIDE RECORDS SUMMARY | 2025-01-09 05:09 | XMS_ITS ---
Author Organization [facility] Address [address] [place], [place] [id number] Care Team Providers Care Bath Design Sales Consultant Name Role Phone Mickey Viera Primary Care Provider [phone] REASON FOR VISIT due col,frederic,dexa Encounters Encounter Location Date Provider [facility] 36 [facility] [address] [place] [id number] 01/09/2025 Mickey Viera Osteoporosis M81.0 a nd Encounter for screening for osteoporosis Z13.820 Assessments Encounter Date Diagnosis (ICD Code) Assessment Notes Treatment Notes Treatment Clinical Notes Section Notes 01/09/2025 Osteoporosis (ICD-10 - M81.0) 01/09/2025 Encounter for screening for osteoporosis (ICD-10 - Z13.820) Plan Of Treatment Next Appt Details Provider Name:Mickey Riddle , 06/29/2025 02:00:00 PM, 1210 [facility] 36 [facility], [address], [place], [place], [id number], Progress Notes * ZEYADJOHNNATB:1950 (74 yo F)Acc No.[id number]:01/09/2025 Patient: BERNICE GAYTAN :1950 A ge:74 Y S ex:Female Address:[address] [place], [address] Subjective: * Chief Complaints: * D ue col,frederic,dexa * Medical History: * Surgical History: * Hospitalization/Major Diagno stic Procedure: * Medications: Objective: * Vitals: * Physical Examination: Assessment: * Assessment: 1. O steoporosis - M81.0 (Primary) 2 . E ncounter for screening for osteoporosis - Z13.820 Plan: * Treatment: 2.?Encounter for screening for osteoporosis?Imaging: Bone density* Dia Nelson 01/17/2025 03:44 :25 PM EDT >sent to [facility] for referral to [facility] * Procedure Codes: * true * Date: Generated for Manas jaramillo/Inez/Velvetitting on: 0 02/20/2025 01:17 PM EDT
--- OUTSIDE RECORDS SUMMARY | 2025-02-20 13:18 | XMS_ITS | Patient Health Record ---
Author Organization [facility] Address [address] [place] [id number] Care Team Providers Care Solar Project Manager Name Role Phone Mickey Viera Primary Care Provider [phone] Allergies Allergen (clinical drug ingredient) Drug/Non Drug [...] 104 Performing Lab: Notes/Report: Test performed by [facility] , [address], [place] [address] Juan R Mendez MD, Litigation Attorney CLIA: [id number] Sodium 139 135-145 mmol/L Potassium 4.6 3.5-5.3 [...] 4.5 Performing Lab: Notes/Report: Test performed by [facility], [address] , [address], [place] [address] Juan R Mendez MD, Litigation Attorney CLIA: [id number] Cholesterol 272 <200 mg/dL Triglycerides 131 <150 [...] Interpretation:Normal Performing Lab: Notes/Report: Test performed by [facility] [address] [place] [address] [place] [address] Juan R Mendez MD, Litigation Attorney CLIA: [id number] TSH reflex to FT4 1.42 0.43-5.25 mU/L P-Microalbumin/Creatinine, R andom Urine Sample Reviewed date:12/27/2024 11:14:56 AM Interpretation:Normal Performing Lab: Notes/Report: Test performed by [facility] [address] [place] [address] , [place] [address] Juan R Mendez MD, Litigation Attorney CLIA: [id number] Albumin/Creatinine Ratio, Urine 5 0-30 ug/mg Microalbumin, Urine, Random 0.6 Creatinine, Urine 124.9 P-Vitamin D 25-Hydroxy Reviewed date:12/27/2024 11:14:56 AM Interpretation:40.7 Performing Lab: Notes/Report: Test performed by [facility] [address] [place] [address] Martín Quintero C, [place] [address] Juan R Mendez MD, Litigation Attorney CLIA: [id number] Vitamin D 25-Hydroxy 40.7 30.0-100.0 ng/mL Interpretation [...] microvascular ischemic disease and generalized age appro Glucose (In-House) Reviewed date:03/06/2024 10:37:06 AM Interpretation:138 Performing Lab: Notes/Report: 138 blood glucose 138 74 - 106 mg/dL Glycohemoglobin A1c (in hous e) Reviewed date:03/06/2024 10:37:06 AM Interpretation:5.9 Performing Lab: Notes/Report: 5.9 glycohemoglobin 5.9% 5 - 6.5 % P-Comprehensive Metabolic Pa aydin (CMP) Reviewed date:03/06/2024 10:37:06 AM Interpretation:gluc 109 Performing Lab: Notes/Report: Test performed by [facility] [address] [place] [address] , Martín C, [place] [address] Juan R Mendez MD, Litigation Attorney CLIA: [id number] Sodium 141 135-145 mmol/L Potassium 4.6 3.5-5.3 [...] 135 Performing Lab: Notes/Report: Test performed by [facility] [address] , [place] [address] Juan R Mendez MD, Litigation Attorney CLIA: [id number] Cholesterol 176 <200 mg/dL Triglycerides 96 <150 [...] Interpretation:48.9 Performing Lab: Notes/Report: Test performed by [facility], [facility] [address] [place] [address] , [address], [place] [address] Juan R Mendez MD, Litigation Attorney CLIA: [id number] Vitamin D 25-Hydroxy 48.9 30.0-100.0 ng/mL Interpretation of Vitamin D 25 OH: < 20 ng/mL - Deficiency 20 - 29 ng/mL - Insufficiency 30 - 100 ng/mL - Sufficiency > 100 ng/mL - Super-therapeutic- toxicity may occur above this level. Clinical correlation required. MRI : Brain with and without contrast Reviewed date:10/16/2024 12:31:09 PM Interpretation: Performing Lab: Notes/Report: H-BUN/CREAT Reviewed date:04/19/2024 01:55:50 PM Interpretation:Normal Performing Lab: Notes/Report: BUN 9 7-17 mg/dl CREATT 0.80 0.52-1.04 mg/dl GFRAA 85 >60 ML/MIN EGFR 71 >60 ml/min Bone density Reviewed date:02/07/2025 09:24:23 AM Interpretation:osteopenia and osteoporosis Performing Lab: Notes/Report: osteopenia and osteoporosis Bone density osteopenia and osteoporosis Reason For Referral Diagnosis 1 Sinus pressure (J34. 89) Referral Organization [facility] Referring Provider First Name Mickey Referring Provider Last Name Maximiliano Referring Provider Speciality Family Pra ctice Referred Provider Machelle Greene Referred Provider Specialty ENT General Notes Helen Garcia 2024 02:42:43 PM > faxed to [facility] Radha BARNES Brynn 12/28/2024 11:33:33 AM [...] Status Risk Notes Problem Gastroesophageal reflux disease (284914984) GERD (gastroesophageal reflux disease) (K21.9) Active confirmed Problem Vitamin D deficiency (01738844) Vitamin D deficiency (E55.9) Active confirmed Problem Essential hypertension (71324250) Essential hypertension (I10) Active confirmed Problem Mixed anxiety and depressive disorder (074293197) Depression with anxiety (F41.8) Active confirmed Problem Body mass index 30+ - obesity (640187761) BMI 30.0-30.9,adult (Z68.30) Active confirmed Problem Pathological fracture of vertebra (159273512) Vertebral compression fracture (M48.50XA) Active confirmed Problem Primary generalised osteoarthritis (360071894) Primary generalized (osteo)arthritis (M15.0) Active confirmed Problem Chronic pain (86879269) Other chronic pain (G89.29) Active confirmed Problem Chronic pain syndrome (238640809) Chronic pain syndrome (G89.4) Active confirmed Problem Sciatica (44139982) Lumbago with sciatica, unspecified side (M54.40) Active confirmed Problem Reactive depression (situational) (19708224) Situational depression (F43.21) Active confirmed Problem COPD - Chronic obstructive pulmonary disease (64370915) Chronic obstructive pulmonary disease, unspecified COPD type (J44.9) Active confirmed Problem Osteoporosis (11899347) Osteoporosis (M81.0) Active confirmed Problem Acute sinusitis (52898682) Acute sinusitis, recurrence not specified, unspecified location (J01.90) Active confirmed Problem Dyslipidemia (633773241) Dyslipidemia (E78.5) Active confirmed Problem Impaired fasting glycaemia (797532975) IFG (impaired fasting glucose) (R73.01) Active confirmed Problem Abdominal aortic aneurysm without rupture (disorder) (38286082) Abdominal aortic aneurysm (AAA) without rupture (I71.4) Active confirmed Problem Tobacco use (647125605) Tobacco use disorder (F17.200) Active confirmed Problem Acquired spondylolisthesis (356271610) Lumbar spondylolysis (M43.06) Active confirmed Problem Allergic rhinitis (68118692) Allergic rhinitis, unspecified seasonality, unspecified trigger (J30.9) Active confirmed Problem 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) Active confirmed Problem Gastroesophageal reflux disease (904084352) Gastroesophageal reflux disease, unspecified whether esophagitis present (K21.9) Active confirmed Vital Signs Heart Rate 95 /min 12/25/2024 Blood pressure diastolic 88 mm Hg 12/25/2024 Height 61 in 12/25/2024 Blood pressure systolic 140 mm Hg 12/25/2024 Weight 161 lbs 12/25/2024 BMI 30.42 kg/m2 12/25/2024 Encounters Encounter Location Date [facility] [address] [place] [id number] 03/03/2024 Mickey Macon Dyslipidemia E78.5 ; Vitamin D deficiency E55.9 ; Essential hypertension I10 ; Allergic rhinitis, unspecified seasonality, unspecified trigger J30.9 and IFG (impaired fasting glucose) R73.01 [facility] [address] [place] [id number] 04/06/2024 Mickey Macon Daily headache R51.9 and Blurry vision H53.8 [facility] [address] [place] [id number] 12/25/2024 Mickey Macon Dyslipidemia E78.5 ; Essential hypertension I10 ; GERD (gastroesophageal reflux disease) K21.9 ; Vitamin D deficiency E55.9 ; Sinus pressure J34.89 ; Screening for lung cancer Z12.2 ; Personal history of nicotine dependence Z87.891 ; research executive use of drug Z79.899 ; Chronic obstructive pulmonary disease, unspecified COPD type J44.9 and BMI 30.0-30.9,adult Z68.30 [facility] [address] [place], [place] [id number] 02/07/2025 Mickey Macon [facility] [address] [place], [place] [id number] 03/06/2024 Mickey Macon [facility] [address] [place], [place] [id number] 04/19/2024 Mickey Macon [facility] [address] [place], [place] [id number] 06/28/2024 Mickey Macon Lumbago with sciatic a, unspecified side M54.40 [facility] [address] [place], [place] [id number] 12/13/2024 Mickey Macon [facility] [address] [place], [place] [id number] 12/27/2024 Mickey Macon [facility] [address] [place], [place] [id number] 01/02/2025 Mickey Macon Lumbago with sciatic a, unspecified side M54.40 [facility] [address] [place], [place] [id number] 01/09/2025 Mickey Macon Osteoporosis M81.0 a nd Encounter for screening for osteoporosis Z13.820 Assessments Encounter Date Diagnosis (ICD Code) Assessment Notes Treatment Notes Treatment Clinical Notes Section Notes 03/03/2024 Vitamin D deficiency (ICD-10 - E55.9) 03/03/2024 Dyslipidemia (ICD-10 - E78.5) 04/06/2024 Blurry vision (ICD-10 - H53.8) 04/06/2024 Daily headache (ICD-10 - R51.9) 06/28/2024 Lumbago with sciatica, unspecified side (ICD-10 - M54.40) 01/02/2025 Lumbago with sciatica, unspecified side (ICD-10 - M54.40) 01/09/2025 Encounter for screening for osteoporosis (ICD-10 - Z13.820) 01/09/2025 Osteoporosis (ICD-10 - M81.0) 12/25/2024 Essential hypertension (ICD-10 - I10) 12/25/2024 Dyslipidemia (ICD-10 - E78.5) 12/25/2024 GERD (gastroesophageal reflux disease) (ICD-10 - K21.9) 03/03/2024 Essential hypertension (ICD-10 - I10) 12/25/2024 Vitamin D deficiency (ICD-10 - E55.9) 03/03/2024 Allergic rhinitis, unspecified seasonality, unspecified trigger (ICD-10 - J30.9) 12/25/2024 Sinus pressure (ICD-10 - J34.89) 03/03/2024 IFG (impaired fasting glucose) (ICD-10 - R73.01) 12/25/2024 Screening for lung cancer (ICD-10 - Z12.2) 12/25/2024 Personal history of nicotine dependence (ICD-10 - Z87.891) 12/25/2024 research executive use of drug (ICD-10 - Z79.899) 12/25/2024 Chronic obstructive pulmonary disease, unspecified COPD type (ICD-10 - J44.9) 12/25/2024 BMI 30.0-30.9,adult (ICD-10 - Z68.30) Plan Of Treatment Pending Test Test Name Order Date CT Scan : Chest, low dose 12/25/2024 Next Appt Details Provider Name:Mickey Riddle , 06/29/2025 02:00:00 PM, [address], [address], [place], [place], [id number], Insurance Providers Payer Name Payer Address Payer Phone Subscriber Number Group Number Insured Name Patient Relationship to Insured Coverage Start Date Coverage End Date MEDICARE PART B [address] [address] [place] [address] [id number] BERNICE JEFFERS Self - patient is the insured [facility] [address] [place], [place] [id number] BERNICE JEFFERS Self - patient is the [...] Hysterectomy Cholecystectomy Cataracts Hospitalization History Reason Date(Month/Year) [facility] ER 01/08/2020
--- NOTE | 2025-02-20 13:30 | CT_ITS ---
FINAL REPORT TECHNIQUE: Thin section axial images were obtained through the paranasal sinuses without contrast. Reconstruction images were obtained from the axial data. Exam was performed using dose reduction techniques such as automated exposure control, adjustment of the mA and kV according to patient size, and use of iterative reconstruction technique. CLINICAL HISTORY: evaluation and treatment for chonric sinustitis COMPARISON: None FINDINGS: The paranasal sinuses are clear. There is no air-fluid level or significant mucosal thickening. The maxillary infundibulum are patent bilaterally. There is minimal right nasal septal deviation. The mastoid air cells are clear. There is no acute osseous abnormality. Remaining soft tissues are unremarkable. IMPRESSION: No evidence of acute sinusitis. Reviewed, Interpreted and Dictated by Calli eMnendez MD Transcribed by Nicol Castillo Authenticated and [facility]
== END 2025-02-20 23:59 | disposition home or self-care (01) ==
LOC: RAD 13:13
PROVIDERS: PCP Family Medicine; Visit Provider Nurse Practitioner
DX: J32.9 Chronic sinusitis, unspecified (principal)
CPT/HCPCS: 70486